=== PATIENT | female | born 1965 | race Two or more races ===

== ENCOUNTER 2016-06-21 07:47 | Outpatient (CLI) | payer MEDICAID | END 2016-06-21 07:48 | disposition home or self-care (01) | DX: E11.9 Type 2 diabetes mellitus without complications (principal) ==

== ENCOUNTER 2016-07-01 09:43 | Outpatient (CLI) | payer MEDICAID | END 2016-07-01 09:44 | disposition home or self-care (01) | DX: Z87.898 Personal history of other specified conditions (principal) ==

== ENCOUNTER 2016-09-20 10:44 | Outpatient (CLI) | payer MEDICAID ==
[2016-09-20 14:27] LABS: HEMOGLOBIN A1C 1.32 g/dL
[2016-09-20 14:29] LABS: ALBUMIN/GLOBULIN RATIO 0.9 (1.0-2.2); BILIRUBIN,TOTAL 0.3 mg/dL (0.2-1.0); CALCIUM 9.2 mg/dL (8.5-10.3); CREATININE 0.4 mg/dL (0.4-1.0); POTASSIUM 3.5 mmol/L (3.5-5.0); TOTAL PROTEIN 7.7 g/dL (6.7-8.2)
== END 2016-09-20 23:59 | disposition home or self-care (01) ==
LOC: LAB.N 10:44
PROVIDERS: ATTEND Nurse Practitioner Gerontology
DX: E11.9 Type 2 diabetes mellitus without complications (principal)
CPT/HCPCS: 36415; 80053; 83036

== ENCOUNTER 2016-12-03 12:07 | Outpatient (CLI) | payer MEDICAID ==
--- NOTE | 2016-12-03 17:04 | XRAY Report ---
THREE VIEW LUMBAR SPINE: 12/03/2016 CLINICAL INDICATION: Muscle strain. AP, lateral, coned-down views of the lumbar spine demonstrate normal height and alignment of the vert ebral bodies. The disk spaces are preserved. There is no evidence of fracture or subluxation. IMPRESSION: NORMAL LUMBAR SPINE. JOB #: [id number] EXT JOB #:[id number]
== END 2016-12-03 12:08 | disposition home or self-care (01) ==
LOC: DI.N 12:07
PROVIDERS: ATTEND Family Medicine
DX: S39.012D Strain of muscle, fascia and tendon of lower back, subsequent encounter (principal)
CPT/HCPCS: 72100

== ENCOUNTER 2016-12-23 11:41 | Outpatient (CLI) | payer MEDICAID ==
[2016-12-23 20:26] LABS: HEMOGLOBIN A1C 1.38 g/dL
== END 2016-12-23 11:42 | disposition home or self-care (01) ==
LOC: LAB.N 11:41
PROVIDERS: ATTEND Nurse Practitioner Gerontology
DX: E11.9 Type 2 diabetes mellitus without complications (principal)
CPT/HCPCS: 36415; 83036

== ENCOUNTER 2017-04-07 07:37 | Outpatient (CLI) | payer MEDICAID ==
[2017-04-07 13:55] LABS: HEMOGLOBIN A1C 0.88 g/dL
== END 2017-04-07 07:38 | disposition home or self-care (01) ==
LOC: LAB.N 07:37
PROVIDERS: ATTEND Nurse Practitioner Gerontology
DX: E11.9 Type 2 diabetes mellitus without complications (principal)
CPT/HCPCS: 36415; 83036

== ENCOUNTER 2017-07-10 09:21 | Outpatient (CLI) | payer MEDICAID ==
[2017-07-10 12:46] LABS: ALBUMIN 3.6 g/dL (3.2-5.5); ALBUMIN/GLOBULIN RATIO 0.9 (1.0-2.2); BILIRUBIN,TOTAL 0.2 mg/dL (0.2-1.0); CALCIUM 8.8 mg/dL (8.5-10.3); CREATININE 0.5 mg/dL (0.4-1.0); TOTAL PROTEIN 7.8 g/dL (6.7-8.2)
[2017-07-10 13:37] LABS: HB2 TOTAL 13.8 g/dL; HEMOGLOBIN A1C % 8.8 % (4.6-6.2)
== END 2017-07-10 09:22 | disposition home or self-care (01) ==
LOC: LAB.N 09:21
PROVIDERS: ATTEND Nurse Practitioner Gerontology
DX: E11.9 Type 2 diabetes mellitus without complications (principal)
CPT/HCPCS: 36415; 80053; 82043; 83036

== ENCOUNTER 2017-10-23 08:00 | Outpatient (CLI) | payer MEDICAID ==
[2017-10-23 18:55] LABS: HB2 TOTAL 13.8 g/dL; HEMOGLOBIN A1C 0.88 g/dL
== END 2017-10-23 08:01 | disposition home or self-care (01) ==
LOC: LAB.N 08:00
PROVIDERS: ATTEND Nurse Practitioner Gerontology
DX: E11.9 Type 2 diabetes mellitus without complications (principal)
CPT/HCPCS: 36415; 83036

== ENCOUNTER 2018-01-30 10:45 | Outpatient (CLI) | payer MEDICAID ==
[2018-01-30 13:06] LABS: HB2 TOTAL 14.1 g/dL; HEMOGLOBIN A1C 1.01 g/dL; HEMOGLOBIN A1C % 8.7 % (4.6-6.2)
== END 2018-01-30 10:46 | disposition home or self-care (01) ==
LOC: LAB.WCP 10:45
PROVIDERS: ATTEND Nurse Practitioner Gerontology
DX: E11.9 Type 2 diabetes mellitus without complications (principal)
CPT/HCPCS: 36415; 83036

== ENCOUNTER 2018-03-09 13:50 | Outpatient (CLI) | payer MEDICAID | END 2018-03-09 13:51 | disposition home or self-care (01) | LOC: SC 13:50 | PROVIDERS: ATTEND Internal Medicine Pulmonary Disease | DX: G47.10 Hypersomnia, unspecified (principal); R51 Headache; R06.83 Snoring; R41.89 Other symptoms and signs involving cognitive functions and awareness | CPT/HCPCS: 99203; 99212 ==

== ENCOUNTER 2018-04-24 19:40 | Outpatient (CLI) | payer MEDICAID | END 2018-04-24 19:41 | disposition home or self-care (01) | LOC: SC 19:40 | PROVIDERS: ATTEND Internal Medicine Pulmonary Disease | DX: G47.33 Obstructive sleep apnea (adult) (pediatric) (principal); G47.59 Other parasomnia | CPT/HCPCS: 95810 ==

== ENCOUNTER 2018-05-11 07:10 | Outpatient (CLI) | payer MEDICAID ==
[2018-05-11 13:52] LABS: BUN - BLOOD UREA NITROGEN 12 mg/dL (6-20); CALCIUM 8.9 mg/dL (8.5-10.3); CARBON DIOXIDE - CO2 28 mmol/L (21-32); CHLORIDE 97 mmol/L (101-111); CHOL/HDL RATIO 4.1 (<4.4); CHOLESTEROL 157 mg/dL; CREATININE 0.5 mg/dL (0.4-1.0); GFR - MDRD 130 (>89); GLUCOSE 169 mg/dL (70-100); HDL CHOLESTEROL 38 mg/dL; LDL CHOLESTEROL,CALCULATED 86 mg/dL; LDL/HDL RATIO 2.3 (<4.4); SODIUM 134 mmol/L (135-145); VLDL CHOLESTEROL 33 mg/dL
[2018-05-11 15:21] LABS: HB2 TOTAL 12.6 g/dL; HEMOGLOBIN A1C 1.06 g/dL; HEMOGLOBIN A1C % 9.8 % (4.6-6.2)
== END 2018-05-11 23:59 | disposition home or self-care (01) ==
LOC: LAB.N 07:10
PROVIDERS: ATTEND Nurse Practitioner Gerontology
DX: E11.9 Type 2 diabetes mellitus without complications (principal)
CPT/HCPCS: 36415; 80048; 80061; 83036; 83721; 84443

== ENCOUNTER 2018-05-21 11:05 | Outpatient (CLI) | payer MEDICAID | END 2018-05-21 11:06 | disposition home or self-care (01) | LOC: SC 11:05 | PROVIDERS: ATTEND Nurse Practitioner Family | DX: G47.33 Obstructive sleep apnea (adult) (pediatric) (principal) | CPT/HCPCS: 99212; 99214 ==

== ENCOUNTER 2018-08-21 08:00 | Outpatient (CLI) | payer MEDICAID ==
[2018-08-21 12:51] LABS: BASOPHILS % (AUTO) 0.8 %; EOSINOPHILS # (AUTO) 0.1 10^3/uL (0.0-0.7); EOSINOPHILS % (AUTO) 1.5 %; HGB - HEMOGLOBIN 12.4 g/dL (12.0-16.0); LYMPHOCYTES # (AUTO) 1.8 10^3/uL (1.5-3.5); LYMPHOCYTES % (AUTO) 29.3 %; MEAN CORPUSCULAR HEMOGLOBIN 27.8 pg (27.0-31.0); MEAN CORPUSCULAR VOLUME 84.3 fL (81.0-99.0); MEAN PLATELET VOLUME 8.7 fL (7.9-10.8); MONOCYTES # (AUTO) 0.3 10^3/uL (0.0-1.0); MONOCYTES % (AUTO) 4.8 %; NEUTROPHILS # (AUTO) 3.9 10^3/uL (1.5-6.6); NEUTROPHILS % (AUTO) 63.6 %; PLT - PLATELET COUNT 331 10^3/uL (130-450); RED BLOOD COUNT 4.47 10^6/uL (4.20-5.40); RED CELL DISTRIBUTION WIDTH 13.9 % (12.0-15.0); WHITE BLOOD COUNT 6.2 x10^3/uL (4.8-10.8)
[2018-08-21 13:04] LABS: ALBUMIN 3.5 g/dL (3.2-5.5); ALBUMIN/GLOBULIN RATIO 0.8 (1.0-2.2); ALKALINE PHOSPHATASE 98 IU/L (42-121); ALT ALANINE AMINOTRANSFERASE 14 IU/L (10-60); AST ASPARTATE AMINOTRANSFERASE 12 IU/L (10-42); BILIRUBIN,TOTAL 0.4 mg/dL (0.2-1.0); BUN - BLOOD UREA NITROGEN 15 mg/dL (6-20); CALCIUM 9.5 mg/dL (8.5-10.3); CARBON DIOXIDE - CO2 31 mmol/L (21-32); CHLORIDE 98 mmol/L (101-111); CHOLESTEROL 161 mg/dL; CREATININE 0.6 mg/dL (0.4-1.0); GFR - MDRD 105 (>89); GLUCOSE 236 mg/dL (70-100); HDL CHOLESTEROL 40 mg/dL; LDL CHOLESTEROL,CALCULATED 100 mg/dL; LDL/HDL RATIO 2.5 (<4.4); SODIUM 139 mmol/L (135-145); VLDL CHOLESTEROL 21 mg/dL
[2018-08-21 13:10] LABS: CREATININE,URINE 151.4 mg/dL; MICROALBUM/CREATININE RATIO,UR 91.8 ug/mg (<30.0); MICROALBUMIN,URINE 13.9 mg/dL (0-300.0)
[2018-08-21 13:38] LABS: HB2 TOTAL 13.5 g/dL; HEMOGLOBIN A1C 0.97 g/dL; HEMOGLOBIN A1C % 8.7 % (4.6-6.2)
== END 2018-08-21 23:59 | disposition home or self-care (01) ==
LOC: LAB.N 08:00
DX: E11.9 Type 2 diabetes mellitus without complications (principal)
CPT/HCPCS: 36415; 80053; 80061; 82043; 82570; 83036; 83721; 84443; 85025

== ENCOUNTER 2018-10-08 13:18 | Outpatient (CLI) | payer MEDICAID | END 2018-10-08 13:19 | disposition home or self-care (01) | LOC: DI.N 13:18 | DX: Z53.9 Procedure and treatment not carried out, unspecified reason (principal) ==

== ENCOUNTER 2018-10-23 12:31 | Outpatient (CLI) | payer MEDICAID ==
--- NOTE | 2018-10-23 15:05 | Mammography Report ---
Reason: MASTALGIA Procedure Date: 10/23/2018 Accession Number: [id number] / [id number] Procedure: MARIA TERESA - Diagnostic Dig Bilat CPT Code: FULL RESULT: EXAM: Diagnostic Dig Bilat DATE: 10/23/2018 1:44 PM CLINICAL HISTORY: Diagnostic examination. Nipple pain, sharp and bilateral. TECHNIQUE: (B) - Bilateral CC, laterally exaggerated CC, MLO views were obtained. Bilateral ML views are obtained. COMPARISON: 07/01/2016 through 12/10/2012. PARENCHYMAL PATTERN: (A) - The breast(s) demonstrate(s) scattered fibroglandular densities. FINDINGS: There are bilateral coarse typically benign calcifications as well as typically benign vascular calcifications There are no suspicious masses, calcifications, or areas of distortion. IMPRESSION: Benign findings. BI-RADS category 2. RECOMMENDATION: (ANNUAL) - Recommend routine annual screening mammography. BI-RADS CATEGORY: (2) - Benign Findings. STANDARD QUALIFYING STATEMENTS: 1. This examination was not reviewed with the aid of Computer-Aided Detection (CAD). 2. A negative or benign imaging report should not preclude biopsy if clinically suspicious findings are present. 3. Dense breasts may obscure an underlying neoplasm. 4. This examination was reviewed with the aid of 3D breast imaging (tomosynthesis).
== END 2018-10-23 12:32 | disposition home or self-care (01) ==
LOC: DI 12:31
PROVIDERS: ATTEND Family Medicine
DX: N64.4 Mastodynia (principal)
CPT/HCPCS: 77062; 77066

== ENCOUNTER 2018-10-27 15:39 | Outpatient (CLI) | payer MEDICAID ==
[2018-10-27 16:36] VITALS: BP 125/74
--- NOTE | 2018-10-27 16:36 | CONSULTATION NOTE ---
Information from patient questionnaire entered by Lydia Abdalla. I have reviewed and concur with the information entered by Lydia Abdalla. This document represents the service I personally performed and the decisions made by me, Karen Crooks MD, [facility]. - History of Present Illness HPI: JEFF CRAWFORD was diagnosed to have moderate, AHI 28.8, obstructive sleep apnea-hypopnea syndrome and returned today for CPAP therapy first compliance follow-up after having been on the treatment for 3 months. The patient went to [facility] for the equipment and was fitted with a full face mask. She reports the CPAP not every night and the mask usually falls off during the night.. The compliance report shows usage in 21 nights out of the past 30 nights, averaging 3.5 hours a night. She complained of no particular problem with the device such as soreness on the face, dry nose, epistaxis, nasal congestion or headache. She thinks that the pressure of 4 - 16 cmH2O is comfortable. She has not felt significantly better on the treatment. The [place] Sleepiness Scale score 11. The average residual AHI is 1.7; and air leak, 3.6 L/min. The 90th percentile pressure is 14.6 cmH2O. Equipment obtained from: [facility] Mask style: Full face - Compliance Data Reviewed with Patient Average duration of nightly device use (hours): 3 Compliance rate % (4+hrs/night over past 30 nights): 23 Current pressure setting (cmH2O): 4-16 Average residual AHI: 1.7 - Subjective Initial [place] Sleepiness Scale score: 8 Current [place] Sleepiness Scale score: 11 - Review of Systems Review of systems same as previous: Yes - Allergies/Medications Allergies codeine Allergy (Verified 06/06/14 10:36) Unknown - Physical Examination Vital signs obtained and entered by: Mary Lopez MA Blood Pressure: 125/74 Heart Rate: 107 O2 Saturation: 95 Height: 5 ft 4.5 in Weight (kg): 123.559 kg Weight change since last visit: -1 lbs Body Mass Index: 46.0 BMI Classification: Class 3 Neck circumference: 16 - Impression 1. Obstructive Sleep Apnea-Hypopnea Syndrome, moderate, with the patient having [id number] compliance due to mask falling off her face during the night and claustrophobia. I will order her a [employer] nasal cushion mask. The current pressure appears effective and comfortable. Overall, she is very satisfied with treatment and would like to keep trying to use the CPAP adequately. No adjustment is necessary today. - Plan Patient Coaching: The pt was instructed to use the CPAP more often. Plan: 1. Continue with autoCPAP at the same setting. 2.[employer]ironics DreamWear nasal cushion mask with all 4 cushion sizes given to her because she is not due for another mask through her insurance. [ 3. Attempt to lose weight.] [ Return for follow-up in 1 month to document compliance. I spent 100% of this 25 minute visit face to face with the patient with greater than 50% of this was spent time counseling the patient and coordination of care.
== END 2018-10-27 15:40 | disposition home or self-care (01) ==
LOC: SC 15:39
PROVIDERS: ATTEND Internal Medicine Pulmonary Disease
DX: G47.33 Obstructive sleep apnea (adult) (pediatric) (principal)
CPT/HCPCS: 99212; 99213

== ENCOUNTER 2018-11-17 11:22 | Emergency (ER) | payer MEDICAID ==
[2018-11-17 12:05] LABS: BASOPHILS # (AUTO) 0.1 10^3/uL (0.0-0.1); BASOPHILS % (AUTO) 0.6 %; EOSINOPHILS # (AUTO) 0.1 10^3/uL (0.0-0.7); EOSINOPHILS % (AUTO) 1.2 %; HGB - HEMOGLOBIN 12.8 g/dL (12.0-16.0); LYMPHOCYTES # (AUTO) 1.9 10^3/uL (1.5-3.5); MEAN CORPUSCULAR HEMOGLOBIN 27.6 pg (27.0-31.0); MEAN CORPUSCULAR HGB CONC 32.6 g/dL (32.0-36.0); MEAN CORPUSCULAR VOLUME 84.9 fL (81.0-99.0); MEAN PLATELET VOLUME 9.5 fL (7.9-10.8); MONOCYTES # (AUTO) 0.4 10^3/uL (0.0-1.0); NEUTROPHILS % (AUTO) 70.4 %; PLT - PLATELET COUNT 358 10^3/uL (130-450); RED BLOOD COUNT 4.63 10^6/uL (4.20-5.40); RED CELL DISTRIBUTION WIDTH 13.4 % (12.0-15.0); WHITE BLOOD COUNT 8.5 x10^3/uL (4.8-10.8)
[2018-11-17 12:19] LABS: ALBUMIN 3.6 g/dL (3.2-5.5); ALBUMIN/GLOBULIN RATIO 0.8 (1.0-2.2); BILIRUBIN,TOTAL 0.5 mg/dL (0.2-1.0); CREATININE 0.6 mg/dL (0.4-1.0)
[2018-11-17] MEDS ORDERED: KETOROLAC 30 MG/ML VIAL IVP STA (12:20)
[2018-11-17] MEDS ORDERED: LOPERAMIDE 2 MG CAPSULE PO STA (12:20)
[2018-11-17] MEDS ORDERED: SODIUM CHLORIDE 0.9% 1,000 ML IV ONE (12:20)
[2018-11-17] MEDS ORDERED: ONDANSETRON 4 MG/2 ML VIAL IVP STA (12:20)
--- NOTE | 2018-11-17 12:22 | ED Physician Documentation ---
PD HPI ABD PAIN - Stated complaint Stated Complaint: STOMACH PX, N/V - Chief complaint Chief Complaint: Abd Pain - History obtained from History obtained from: Patient - History of Present Illness Timing - onset: Yesterday (53-year-old woman with recent upper respiratory infection, type 2 diabetes, and history of cholecystectomy presents with increasing diffuse abdominal cramping associated with nonbloody diarrhea and nausea without vomiting since yesterday. Pain is intermittent and severe today. No sick contacts. She traveled to [place] recently. No recent antibiotics. No other travel. No fevers.) Review of Systems Ten Systems: 10 systems reviewed and negative Constitutional: denies: Fever, Chills Cardiac: denies: Chest pain / pressure, Palpitations Respiratory: denies: Dyspnea, Cough PD PAST MEDICAL HISTORY - Past Medical History Cardiovascular: Hypertension, High cholesterol Endocrine/Autoimmune: Type 2 diabetes : Other Psych: Depression, Anxiety - Past Surgical History Past Surgical History: Yes General: Cholecystectomy - Present Medications Home Medications: Ambulatory Orders Medication Instructions Recorded Confirmed Hydrochlorothiazide 25 mg PO DAILY 06/06/14 01/07/17 Losartan Potassium 100 mg PO DAILY 06/06/14 01/07/17 Metformin HCl 1,000 mg PO BID 06/06/14 01/07/17 Pravastatin Sodium 20 mg PO DAILY 06/06/14 01/07/17 Sertraline HCl 100 mg PO DAILY 06/06/14 01/07/17 Acetaminophen 650 mg PO Q6H PRN 07/11/14 01/07/17 Multivitamin [Multi Vitamin Daily] 1 each PO DAILY 07/11/14 01/07/17 Cyanocobalamin (Vitamin B-12) 1,000 mcg SL DAILY 01/07/17 01/07/17 [Vitamin B-12 (1000 mcg sublingual)] Gabapentin 300 mg PO QPM 01/07/17 01/07/17 Insulin Glargine [Lantus] 60 unit SUBQ QDAC 01/07/17 01/07/17 Insulin Lispro [Humalog] 10 unit SQ TIDWM 01/07/17 01/07/17 Dicyclomine [Bentyl] 20 mg PO QID PRN #15 capsule 11/17/18 Loperamide [Imodium] 2 mg PO QID PRN #10 capsule 11/17/18 Ondansetron Odt [Zofran] 4 mg TL Q6H PRN #10 tablet 11/17/18 - Allergies Allergies/Adverse Reactions: Allergies Allergy/AdvReac Type Severity Reaction Status Date / Time codeine Allergy Intermediate Unknown Verified 11/17/18 11:43 - Social History Does the pt smoke?: No Smoking Status: Former smoker Does the pt drink ETOH?: No Does the pt have substance abuse?: No - POLST Patient has POLST: No PD ED PE NORMAL - Vitals Vital signs reviewed: Yes - General General: Alert and oriented X 3, No acute distress (But intermittently clutching her abdomen anteriorly and pain when she has a cramp.) - HEENT HEENT: PERRL, EOMI - Neck Neck: Supple, no meningeal sign, No bony TTP - Cardiac Cardiac: RRR, No murmur - Respiratory Respiratory: No respiratory distress, Clear bilaterally - Abdomen Abdomen: Normal bowel sounds, Soft, Other (Mild diffuse tenderness without surgical signs, no focal tenderness.) - Back Back: No CVA TTP, No spinal TTP - Derm Derm: Normal color, Warm and dry - Extremities Extremities: No edema, No calf tenderness / cord - Neuro Neuro: Alert and oriented X 3, Normal speech Results - Vitals Vitals: Vital Signs - 24 hr 11/17/18 11:37 Temperature 36.9 C Heart Rate 95 Respiratory 20 Rate Blood Pressure 148/76 H O2 Saturation 97 Oxygen O2 Source Room air - Labs Labs: Laboratory Tests 11/17/18 11/17/18 11/17/18 11:57 11:57 12:30 WBC 8.5 RBC 4.63 Hgb 12.8 Hct 39.3 MCV 84.9 MCH 27.6 MCHC 32.6 RDW 13.4 Plt Count 358 MPV 9.5 Neut # (Auto) 6.0 Lymph # (Auto) 1.9 [place] # (Auto) 0.4 Eos # (Auto) 0.1 Baso # (Auto) 0.1 Absolute Nucleated RBC 0.00 Nucleated RBC % 0.0 Sodium 135 Potassium 3.5 Chloride 93 L Carbon Dioxide 26 Anion Gap 16.0 H BUN 16 Creatinine 0.6 Estimated GFR (MDRD) 105 Glucose 333 H Calcium 9.0 Total Bilirubin 0.5 AST 18 ALT 18 Alkaline Phosphatase 106 Total Protein 8.0 Albumin 3.6 Globulin 4.4 H Albumin/Globulin Ratio 0.8 L Lipase 25 Urine Color YELLOW Urine Clarity CLEAR Urine pH 5.5 Ur Specific [place] 1.025 Urine Protein NEGATIVE Urine Glucose (UA) 500 H Urine Ketones NEGATIVE Urine Occult Blood TRACE-INTA Urine Nitrite NEGATIVE Urine Bilirubin NEGATIVE Urine Urobilinogen 0.2 (NORMAL) Ur Leukocyte Esterase NEGATIVE Ur Microscopic Review NOT INDICATED Urine Culture Comments NOT INDICATED - Rads (name of study) Ct A/P Radiology: EMP read contemporaneously (negative) PD MEDICAL DECISION MAKING - ED course ED course: 53-year-old diabetic woman presents with a syndrome most consistent with gastroenteritis, but the Pain seems prominence therefore we did a CT and labs which were remarkable only for hyperglycemia. She was feeling better after Toradol and Zofran here. She was nontender on reevaluation prior to discharge. Departure - Departure Disposition: 01 Home, Self Care Clinical Impression: Abdominal pain Qualifiers: Abdominal location: generalized Qualified Code(s): R10.84 - Generalized abdominal pain Diarrhea Qualifiers: Diarrhea type: presumed infectious Qualified Code(s): R19.7 - Diarrhea, unspecified Condition: Good Record reviewed to determine appropriate education?: Yes Instructions: ED Diarrhea Viral, Abdominal Pain Prescriptions: Dicyclomine [Bentyl] 20 mg PO QID PRN #15 capsule PRN Reason: Abdominal Pain Loperamide [Imodium] 2 mg PO QID PRN #10 capsule PRN Reason: Diarrhea Ondansetron Odt [Zofran] 4 mg TL Q6H PRN #10 tablet PRN Reason: Nausea / Vomiting Comments: As discussed, you should be better in the next 24 hours. Return if worse or if not better in that timeframe or if you develop other new concerning symptoms such as a fever. Forms: Activity restrictions
[2018-11-17] MEDS ORDERED: IOVERSOL 320 100 ML VIAL IVP ONE ×2 (12:32→13:02)
[2018-11-17 12:52] LABS: BILIRUBIN,URINE NEGATIVE (NEGATIVE); GLUCOSE, URINE (UA) 500 mg/dL (NEGATIVE); KETONES,URINE (UA) NEGATIVE (NEGATIVE); LEUKOCYTE ESTERASE, URINE NEGATIVE (NEGATIVE); NITRITE,URINE NEGATIVE (NEGATIVE); OCCULT BLOOD,URINE TRACE-INTA (NEGATIVE); PH,URINE 5.5 PH (5.0-7.5); PROTEIN,URINE NEGATIVE (NEGATIVE); UROBILINOGEN,URINE 0.2 (NORMAL) E.U./dL (NORMAL)
[2018-11-17 12:55] LABS: CLARITY,URINE CLEAR (CLEAR)
--- NOTE | 2018-11-17 13:15 | CT Report ---
Reason: IV only, abd pain Procedure Date: 11/17/2018 Accession Number: [id number] / [id number] Procedure: CT - Abdomen/Pelvis W CPT Code: FULL RESULT: EXAM: CT ABDOMEN AND PELVIS EXAM DATE: 11/17/2018 12:58 PM. CLINICAL HISTORY: IV only, abdominal pain. COMPARISONS: None. TECHNIQUE: Routine helical CT imaging was performed through the abdomen and pelvis. IV contrast: Optiray 320 100 mL. Enteric contrast: No. Reconstructions: Coronal and sagittal. In accordance with CT protocol optimization, one or more of the following dose reduction techniques were utilized for this exam: automated exposure control, adjustment of mA and/or KV based on patient size, or use of iterative reconstructive technique. FINDINGS: Lung Bases: Unremarkable. Liver: Normal. No masses. Gallbladder/Bile Ducts: Not seen. Spleen: Normal. Pancreas: Normal. Adrenal Glands: Normal. 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 Peritoneal Cavity/Bowel: There is diverticulosis without diverticulitis. No bowel obstruction. No free fluid, free air or adenopathy. No masses or acute inflammatory process. The appendix is not seen; however, there are no inflammatory changes in the pericecal region. Pelvic Organs: Normal. The bladder and visualized pelvic organs are within normal limits. Vasculature: No aneurysms or other significant abnormality. Bones: No significant abnormality. Other: None. IMPRESSION: The etiology of the patient's abdominal pain is not delineated. Presumed history of cholecystectomy as well as appendectomy should be correlated to history. RADIA
[2018-11-17 13:38] VITALS: BP 147/75
== END 2018-11-17 13:51 | disposition home or self-care (01) ==
LOC: ED 11:22
DX: R10.84 Generalized abdominal pain (principal); R19.7 Diarrhea, unspecified; I10 Essential (primary) hypertension; Z79.4 Long term (current) use of insulin; Z87.891 Personal history of nicotine dependence; E11.65 Type 2 diabetes mellitus with hyperglycemia
CPT/HCPCS: 36415; 74177; 80053; 81003; 83690; 85025; 96374; 96375; 99284; A9270; Q9967; 81001; 87086

== ENCOUNTER 2018-11-24 14:19 | Outpatient (CLI) | payer MEDICAID ==
--- NOTE | 2018-12-07 16:50 | SLEEP CARE CONSULTATION ---
Information from patient questionnaire entered by Dalia Cuevas. I have reviewed and concur with the information entered by Dalia Cuevas. This document represents the service I personally performed and the decisions made by me, Karen Crooks MD, [facility]. - History of Present Illness HPI: JEFF CRAWFORD was diagnosed to have moderate, AHI 28.8, obstructive sleep apnea-hypopnea syndrome and returned today for CPAP therapy first compliance extension follow-up. She still is not using her CPAP consistently. The compliance report shows usage in 21 out of the past 30 nights, averaging 4.6 hours a night. She states that she was sick for a while. Equipment obtained from: [facility] - Compliance Data Reviewed with Patient Compliance rate % (4+hrs/night over past 30 nights): 40 Current pressure setting (cmH2O): 4-16 - Subjective Patient concerns: Initial [place] Sleepiness Scale score: 8 Current [place] Sleepiness Scale score: 10 - Review of Systems Review of systems same as previous: Yes - Allergies/Medications Allergies and home medications reviewed: Yes - Impression 1. Obstructive Sleep Apnea-Hypopnea Syndrome, moderate, with poor treatment compliance and good apnea control. On CPAP therapy, there is improved sleep quality and continues to feel more rested overall. The current pressure setting appears effective. Mask fits well. The patient was instructed to use her CPAP more to meet compliance criteria. If she has to return the device due to non- compliance, then we will have to repeat the sleep study. - Plan Plan: Continue auto CPAP pressure at 4 - 16 cm H2O. Notify me if snoring with the mask or feeling that the pressure is too much or too little. Attempt to lose weight. Return for follow-up in 1 month, or sooner if concerns arise. I spent 100% of this 15 minute visit face to face with the patient with greater than 50% of this was spent time counseling the patient and coordination of care.
== END 2018-11-24 14:20 | disposition home or self-care (01) ==
LOC: SC 14:19
PROVIDERS: ATTEND Internal Medicine Pulmonary Disease
DX: G47.33 Obstructive sleep apnea (adult) (pediatric) (principal)
CPT/HCPCS: 99212; 99213

== ENCOUNTER 2018-12-03 11:04 | Day surgery (SDC) | payer MEDICAID ==
[2018-12-03] MEDS ORDERED: LACTATED RINGERS 1,000 ML IV ONE (11:45)
[2018-12-03] MEDS ORDERED: ONDANSETRON 4 MG/2 ML VIAL IVP ONE (12:47)
[2018-12-03] MEDS ORDERED: fentaNYL 100 MCG/2 ML VIAL IVP ONE (12:47)
[2018-12-03] MEDS ORDERED: MIDAZOLAM 2 MG/2 ML VIAL IVP ONE (12:47)
[2018-12-03 14:05] VITALS: BP 123/80
== END 2018-12-03 11:05 | disposition home or self-care (01) ==
LOC: SDS 11:04
PROVIDERS: ATTEND Surgery
PROC: 0DJD8ZZ Inspection of Lower Intestinal Tract, Via Natural or Artificial Opening Endoscopic (ICD-10-PCS; principal; 2018-12-03 12:30)
DX: Z12.11 Encounter for screening for malignant neoplasm of colon (principal); K64.8 Other hemorrhoids; I10 Essential (primary) hypertension; E11.9 Type 2 diabetes mellitus without complications; Z79.4 Long term (current) use of insulin; E66.01 Morbid (severe) obesity due to excess calories; Z68.42 Body mass index [BMI] 45.0-49.9, adult; G47.30 Sleep apnea, unspecified
CPT/HCPCS: 45378; J7120

== ENCOUNTER 2018-12-10 08:00 | Outpatient (CLI) | payer MEDICAID ==
[2018-12-10 20:13] LABS: HB2 TOTAL 13.5 g/dL; HEMOGLOBIN A1C 1.2 g/dL; HEMOGLOBIN A1C % 10.3 % (4.6-6.2)
== END 2018-12-10 23:59 | disposition home or self-care (01) ==
LOC: LAB.WC 08:00
PROVIDERS: ATTEND Family Medicine
DX: E11.9 Type 2 diabetes mellitus without complications (principal)
CPT/HCPCS: 36415; 83036

== ENCOUNTER 2018-12-10 14:27 | Outpatient (CLI) | payer MEDICAID ==
--- NOTE | 2018-12-10 20:24 | XRAY Report ---
Reason: BILATERAL SHOULDER PAIN Procedure Date: 12/10/2018 Accession Number: [id number] / [id number] Procedure: WCP - Shoulder 2 View BILAT CPT Code: FULL RESULT: EXAM: BILATERAL SHOULDER RADIOGRAPHY EXAM DATE: 12/10/2018 02:47 PM. CLINICAL HISTORY: Bilateral shoulder pain. COMPARISON: None. TECHNIQUE: 2 views each shoulder. FINDINGS: Bones: Normal. No fracture or bone lesion. Joints: The glenohumeral and acromioclavicular joints are normally aligned. Mild bilateral acromioclavicular joint degenerative disease. Small calcification along the superolateral right humeral head and prominent calcifications along the superolateral left humeral head and greater tuberosity are consistent with rotator cuff calcific tendinopathy. Calcific bursitis not excluded. Small nodular calcification at the inferior margin of the right glenohumeral joint is suspicious for a small loose body. Soft tissues: The visualized hemithorax is unremarkable. No soft tissue swelling. IMPRESSION: 1. Mild bilateral AC joint degenerative disease. 2. Findings suspicious for bilateral rotator cuff calcific tendinopathy, left more severe than right. 3. Possible small calcified right loose body. RADIA
== END 2018-12-10 23:59 | disposition home or self-care (01) ==
LOC: DI.WCP 14:27
PROVIDERS: ATTEND Family Medicine
DX: M19.012 Primary osteoarthritis, left shoulder (principal); M19.011 Primary osteoarthritis, right shoulder

== ENCOUNTER 2018-12-24 20:26 | Outpatient (CLI) | payer MEDICAID | END 2018-12-24 20:27 | disposition home or self-care (01) | LOC: SC 20:26 | PROVIDERS: ATTEND Internal Medicine Pulmonary Disease | DX: G47.33 Obstructive sleep apnea (adult) (pediatric) (principal); G47.61 Periodic limb movement disorder | CPT/HCPCS: 95810 ==

== ENCOUNTER 2019-01-27 16:11 | Outpatient (CLI) | payer MEDICAID ==
[2019-01-27 18:03] VITALS: BP 116/64
--- NOTE | 2019-01-27 18:03 | SLEEP CARE CONSULTATION ---
Information from patient questionnaire entered by Dalia Cuevas. I have reviewed and concur with the information entered by Dalia Cuevas. This document represents the service I personally performed and the decisions made by me, Lauren Alegre RN, MSN, [employer]. History of Present Illness Initial [place] Sleepiness Scale score: 8 Current [place] Sleepiness Scale score: 15 Additional HPI information: JEFF CRAWFORD returns for follow up of the recently performed polysomnography and informed of findings. Evidently she failed to meet compliance guidelines due to illness and claustrophobia with mask and had to repeat sleep study to re- qualify for CPAP therapy. I explained the pathophysiology behind obstructive sleep apnea. We then spent quite a bit of time discussing different treatment options. For mild obstructive sleep apnea, surgery and oral appliance are alternatives to nasal CPAP therapy but in moderate or severe cases, nasal CPAP is the most effective and reliable treatment. I reviewed the impact of weight changes on sleep apnea and strongly recommended losing weight. After some discussion, the patient opted to go with the nasal CPAP therapy. Nasal autoCPAP set at [id number] will be ordered with rationale explained. A manual titration study will be ordered if unable to find optimal pressure with office adjustments. I again explained how CPAP machine works and what to expect when using the machine. Using CPAP every night in order to get used to it was emphasized. Patient advised to put CPAP mask on before getting into bed so as not to fall asleep without CPAP. To assist acclimation to CPAP use, it could also be used for a short time during day while reading or watching TV. The patient was instructed to call the CPAP supplier to discuss any mechanical problem that may occur. If the mask given is uncomfortable or is difficult to keep on through the night even with adjustment, contact the CPAP supplier as many will replace with another mask style if notified before 30 days. If snoring or perceives is not getting enough air or too much air from the machine, notify this office. [facility] patient education PAP tips reviewed . She has copy from her first set up. Patient counseled not drink alcohol less than 4 hours before bedtime as it can increase snoring and apnea. Patient does not drink alcohol. Patient was cautioned about risks of drowsy driving until sleepiness symptoms resolve. Patient denies drowsy driving. [facility] patient education on snoring and sleep apnea given and reviewed before. Sleep Study - Polysomnography Polysomnography findings: The quality of the study is good. The patient had slightly reduced sleep efficiency due to several awakenings after the sleep onset. The sleep architecture was abnormal for sleep fragmentation and reduced amount of time spent in REM sleep. Respiratory monitoring showed moderate obstructive sleep apnea-hypopnea (AHI = 20.8) associated with frequent arousals, oxyhemoglobin desaturation and moderate hypoxia (diana oxygen saturation of 79%). The respiratory events occurred independently of sleep stage and body position (supine AHI = 66.2; nonsupine = 18.52). Snore was loud in intensity. There was severe periodic leg movement of sleep contributing to the sleep fragmentation. Cardiac rhythm was normal sinus rhythm without significant arrhythmia. No abnormal behavior (parasomnia) observed during the night. Allergies and Home Medications Known drug allergies: Yes (codiene) Home medication list reviewed: Yes Allergy and home medication list: Medication Name (generic/name brand) Strength & Dosage Gabapentin 300mg cap one daily at bedtime Sertraline HCL 100mg tab one daily Humalog 100 unit/ml SQ solution Inject 5 units SQ TID prior to meals Hydrochlorothiazide 25mg tab one daily in the morning Lantus 100 unit/ml SQ solution Inject 70 units SQ daily at bedtime Metformin HCL 1000mg tab one twice daily Pravachol (Pravastatin Sodium) 20mg tab one daily at bedtime Losartan Potassium 100mg tab one daily Allergy List Codeine Review of Systems Review of systems same as previous: No ( eye injections) Physical Exam Blood Pressure: 116/64 Cuff size: long Heart Rate: 97 O2 Saturation: 96 Height: 5 ft 4.5 in Weight: 268 lb 12.8 oz Body Mass Index: 45.4 BMI Classification: Obesity Class 3 Impression and Plan 1. Obstructive Sleep Apnea-Hypopnea Syndrome, moderate, with lowest oxygen saturation of 79%. Obviously this is the cause of the patients symptoms of unrefreshed sleep, and excessive daytime sleepiness. Positive pressure therapy could benefit her hypertension, diabetes and depression. As mentioned above, the patient will be re -started on nasal autoCPAP therapy with pressure set at 4-15 cmH2O. A manual titration study will be completed if unable to find optimal treatment pressure with office adjustments. Compliance guidelines also reviewed. A copy of compliance guidelines will be given for reference at check out. Because the apnea is more severe supine, I instructed to avoid sleeping supine using pillow positioning until able to start CPAP use. Patient is to contact this office if any problems with using CPAP prior to her first follow up. 2. Periodic limb movement, severe, that did not fragment patients sleep. Periodic limb movement of sleep (PLMS) is characterized by episodes of repetitive limb movements that occur during sleep and usually involve the lower limbs. The etiology is unknown but can be associated with restless leg syndrome (RLS), neuropathy, spinal cord diseases, kidney disease, rheumatological disorders, narcolepsy, obstructive sleep apnea, and REM sleep behavior disorder. Other factors that can increase PLMS and/or RLS are heredity and iron deficiency as reflected by a low serum ferritin level below 50 to 75mcg / L. Several medications can precipitate or aggravate PLMS such as selective serotonin re- uptake inhibitor antidepressants, tricyclic antidepressants, lithium, and dopamine receptor antagonists with the exception of bupropion. Caffeine can also aggravate PLMS and should be avoided. Sleep hygiene methods can also improve sleep as well as lifestyle changes such as regular exercise. Patient was advised that no treatment is needed at this time. If symptoms increase, then further evaluation is indicated. Patient has a history of anemia and symptoms of RLS every evening so she is advised to follow up with PCP for further evaluation and treatment to rule out anemia and or possible other cause. * Nasal auto CPAP therapy with pressure at 4-15 cm H2O. * Attempt to lose weight. * Avoid alcohol consumption near bedtime. * Avoid supine sleep until using CPAP. * Follow up with PCP for further evaluation of PLMS / RLS such as anemia. * The patient is again cautioned about driving until sleepiness completely resolves. * Return one month after CPAP obtained. I will assess response to therapy and compliance at that time. I spent 100% of this 35 minute visit face to face with the patient with greater than 50% of this was spent time counseling the patient and coordination of care.
== END 2019-01-27 16:12 | disposition home or self-care (01) ==
LOC: SC 16:11
PROVIDERS: ATTEND Nurse Practitioner Family
DX: G47.33 Obstructive sleep apnea (adult) (pediatric) (principal); G47.61 Periodic limb movement disorder; E66.9 Obesity, unspecified; Z68.42 Body mass index [BMI] 45.0-49.9, adult
CPT/HCPCS: 99212; 99214

== ENCOUNTER 2019-06-11 07:52 | Outpatient (CLI) | payer MEDICAID | END 2019-06-11 07:53 | disposition home or self-care (01) | LOC: RT 07:52 | PROVIDERS: ATTEND Surgery | DX: Z01.818 Encounter for other preprocedural examination (principal); K64.4 Residual hemorrhoidal skin tags; E11.9 Type 2 diabetes mellitus without complications; Z79.899 Other long term (current) drug therapy | CPT/HCPCS: 36415; 80053; 93005 ==

== ENCOUNTER 2019-06-11 09:12 | Outpatient (CLI) | payer MEDICAID ==
[2019-06-11 09:48] LABS: ALBUMIN 3.7 g/dL (3.2-5.5); ALBUMIN/GLOBULIN RATIO 0.8 (1.0-2.2); BILIRUBIN,TOTAL 0.5 mg/dL (0.2-1.0); CALCIUM 9.2 mg/dL (8.5-10.3); CREATININE 0.6 mg/dL (0.4-1.0); TOTAL PROTEIN 8.1 g/dL (6.7-8.2)
== END 2019-06-11 09:13 | disposition home or self-care (01) ==
LOC: LAB 09:12
PROVIDERS: ATTEND Registered Nurse
DX: Z01.812 Encounter for preprocedural laboratory examination (principal); K64.9 Unspecified hemorrhoids; E11.9 Type 2 diabetes mellitus without complications; Z79.899 Other long term (current) drug therapy
CPT/HCPCS: 36415; 80053

== ENCOUNTER 2019-06-15 06:02 | Day surgery (SDC) | payer MEDICAID ==
[2019-06-15] MEDS ORDERED: LACTATED RINGERS 1,000 ML IV ONE ×2 (06:19→08:22)
[2019-06-15] MEDS ORDERED: BUPIVACAINE 0.25% PF 30 ML VIAL ONE (06:59)
[2019-06-15] MEDS ORDERED: LIDOCAINE 1%-EPI 1:100000 20 ML MDV ONE (07:00)
--- NOTE | 2019-06-15 07:00 | ANESTHESIA ---
Pre-Anesthesia VS, & Labs - Diagnosis external hemorrhoid - Procedure Hemorrhoidectomy Vital Signs: Temp Pulse Resp BP Pulse Ox 36 C L 80 16 125/84 H 96 06/15/19 06:24 06/15/19 06:24 06/15/19 06:24 06/15/19 06:24 06/15/19 06:24 Height 5 ft 3 in Weight (kg) 119 kg Body Mass Index 44.7 - NPO >8 hours - Is Patient ?: No - Lab Results Current Lab Results: Laboratory Tests 06/15/19 06:34: POC Whole Bld Glucose 157 H Lab results reviewed: Yes Home Medications and Allergies Hydrochlorothiazide 25 mg PO DAILY 06/06/14 Losartan Potassium 100 mg PO DAILY 06/06/14 Metformin HCl 1,000 mg PO BID 06/06/14 Pravastatin Sodium 20 mg PO DAILY 06/06/14 Sertraline HCl 100 mg PO DAILY 06/06/14 Acetaminophen 650 mg PO Q6H PRN 07/11/14 Gabapentin 600 mg PO QPM 01/07/17 Insulin Glargine [Lantus] 60 unit SUBQ QDAC 01/07/17 Insulin Lispro [Humalog] 2 - 10 unit SQ TIDWM 01/07/17 Allergies/Adverse Reactions: Allergies Allergy/AdvReac Type Severity Reaction Status Date / Time codeine Allergy Intermediate Unknown Verified 11/17/18 11:43 Anes History & Medical History - Anesthetic History Anesthesia Complications: reports: Post-Operative Nausea/Vomiting Family history of Anesthesia Complications: Denies Family history of Malignant Hyperthermia: Denies - Medical History Cardiovascular: reports: Hypertension, High cholesterol Pulmonary: reports: None Gastrointestinal: reports: GERD Urinary: reports: None Neuro: reports: Peripheral neuropathy Musculoskeletal: reports: None Endocrine/Autoimmune: reports: Type 2 diabetes Skin: reports: None Smoking Status: Former smoker - Surgical History General: Cholecystectomy Gynecologic: Tubal ligation Exam General: Alert, Oriented x3, Cooperative Dental: Loose/Frag (lower left) Mouth Openin Fingerbreadth Neck Mobility: Normal Mallampati classification: III Thyromental Distance: 4-6 cm Respiratory: Lungs clear Cardiovascular: Regular rate Neurological: Normal speech Mental/Cognitive Status: Alert/Oriented X3, Normal for patient Cognitive Status: Within normal limits Plan Anesthesia Type: General Consent for Procedure(s) Verified and Reviewed: Yes Code Status: Attempt Resuscitation ASA classification: 2-Mild systemic disease Is this case an emergency?: No
[2019-06-15] MEDS ORDERED: ONDANSETRON 4 MG/2 ML VIAL IVP PRN (07:21)
[2019-06-15] MEDS ORDERED: HYDROmorphone 0.5 MG/0.5 ML SYRINGE IVP PRN (07:21)
[2019-06-15] MEDS ORDERED: oxyCODONE 5 MG TABLET PO PRN (07:21)
[2019-06-15] MEDS ORDERED: MIDAZOLAM 2 MG/2 ML VIAL IVP ONE (07:30)
[2019-06-15] MEDS ORDERED: NEOSTIGMINE 1 MG/1 ML 10 ML MDV IVP ONE (07:30)
[2019-06-15] MEDS ORDERED: KETOROLAC 30 MG/ML VIAL IVP ONE (07:30)
[2019-06-15] MEDS ORDERED: LIDOCAINE-MPF 2% 5 ML VIAL IM ONE (07:30)
[2019-06-15] MEDS ORDERED: DEXAMETHASONE 4 MG/ML VIAL IVP ONE (07:30)
[2019-06-15] MEDS ORDERED: GLYCOPYRROLATE 1 MG/5 ML VIAL IVP ONE (07:30)
[2019-06-15] MEDS ORDERED: fentaNYL 100 MCG/2 ML VIAL IVP ONE (07:30)
[2019-06-15] MEDS ORDERED: PROPOFOL 200 MG/20 ML VIAL IVP ONE (07:30)
[2019-06-15] MEDS ORDERED: SUCCINYLCHOLINE 200 MG/10 ML VIAL IVP ONE (07:30)
[2019-06-15] MEDS ORDERED: ROCURONIUM 50 MG/5 ML VIAL IVP ONE (07:30)
[2019-06-15] MEDS ORDERED: LIDOCAINE 1%-EPI 1:100000 20 ML MDV SUBQ ONE ×2 (08:00)
[2019-06-15] MEDS ORDERED: LIDOCAINE JELLY 2% 5 ML TUBE TOP ONE ×2 (08:01→08:22)
[2019-06-15] MEDS ORDERED: BUPIVACAINE 0.25% PF 30 ML VIAL SUBQ ONE ×2 (08:01)
--- NOTE | 2019-06-15 08:38 | OPERATIVE REPORT ---
Operative Report - General Procedure Date: 06/15/19 Pre-Op Diagnosis: External Hemorrhoids Procedure Performed: Hemorrhoidectomy Post Op Diagnosis: same - Procedure Note Primary Surgeon: Sujata Crane MD Anesthesia Provider: Glenn Stone CRNA Anesthesia Technique: General ET tube Estimated Blood Loss (mL): 5 Indications: Pt with painful external hemorrhoids refractory to medical management. Informed consent reviewed including all risks, benefits, and alternatives and pt wishes to proceed. Findings: Two column swollen external hemorrhoids Complications: none - Other Other Information/Narrative: The patient was taken to the operating room and placed on the operating table in prone jacknife position after intubation. The perineal and buttocks areas were prepped and draped in usual sterile fashion. A retractor was placed in the anus. A large and swollen external hemorrhoid was seen as well as a moderate sized hemorrhoid. No significant hemorrhoidal tissue was seen in the other column and no other abnormal tissue was noted. The skin tag was grasped and retracted from the underlying tissue. Electrocautery was used to carefully excise the tissue to its pedicle. This is repeated with the adjacent hemorrhoid again with attention to the underlying sphincter muscles. Hemostasis was ensured. A 2-0 chromic was used to close the tissue, starting from the apex of the pedicles. Lidocaine jelly was inserted into the anus on a gelfoam pad. An ABD pad and mesh briefs were placed. The patient was awakened and taken to the PACU in stable condition. All counts were correct at the end of the procedure. The patient tolerated the procedure well and was extubated without yainv.
[2019-06-15] MEDS ORDERED: HYDROmorphone 0.5 MG/0.5 ML SYRINGE ONE (08:47)
[2019-06-15] MEDS ORDERED: oxyCODONE 5 MG TABLET ONE (09:12)
[2019-06-15] MEDS ORDERED: ONDANSETRON ODT 4 MG TABLET ONE (10:02)
[2019-06-15 10:03] VITALS: BP 132/76
== END 2019-06-15 06:03 | disposition home or self-care (01) ==
LOC: SDS 06:02
PROVIDERS: ATTEND Surgery
DX: K64.4 Residual hemorrhoidal skin tags (principal); E11.42 Type 2 diabetes mellitus with diabetic polyneuropathy; I10 Essential (primary) hypertension; E78.5 Hyperlipidemia, unspecified; G47.30 Sleep apnea, unspecified; F32.9 Major depressive disorder, single episode, unspecified; E66.9 Obesity, unspecified; Z68.42 Body mass index [BMI] 45.0-49.9, adult; Z79.4 Long term (current) use of insulin; Z87.891 Personal history of nicotine dependence
CPT/HCPCS: 46250; A9270; J0330; J1170; J3490; J7120; Q0162

== ENCOUNTER 2019-06-24 08:00 | Outpatient (CLI) | payer MEDICAID ==
[2019-06-24 12:42] LABS: HB2 TOTAL 12.9 g/dL; HEMOGLOBIN A1C 0.96 g/dL
[2019-06-24 12:45] LABS: ALBUMIN 3.7 g/dL (3.2-5.5); ALBUMIN/GLOBULIN RATIO 0.9 (1.0-2.2); ALKALINE PHOSPHATASE 78 IU/L (42-121); ALT ALANINE AMINOTRANSFERASE 14 IU/L (10-60); AST ASPARTATE AMINOTRANSFERASE 14 IU/L (10-42); BILIRUBIN,TOTAL 0.6 mg/dL (0.2-1.0); BUN - BLOOD UREA NITROGEN 15 mg/dL (6-20); CARBON DIOXIDE - CO2 31 mmol/L (21-32); CHLORIDE 99 mmol/L (101-111); CHOL/HDL RATIO 3.8 (<4.4); CHOLESTEROL 173 mg/dL; CREATININE 0.5 mg/dL (0.4-1.0); GFR - MDRD 129 (>89); GLUCOSE 124 mg/dL (70-100); HDL CHOLESTEROL 45 mg/dL; LDL CHOLESTEROL,CALCULATED 98 mg/dL; LDL/HDL RATIO 2.2 (<4.4); SODIUM 141 mmol/L (135-145); TOTAL PROTEIN 7.9 g/dL (6.7-8.2); VLDL CHOLESTEROL 30 mg/dL
== END 2019-06-24 23:59 | disposition home or self-care (01) ==
LOC: LAB.WCP 08:00
PROVIDERS: ATTEND Family Medicine
DX: E11.65 Type 2 diabetes mellitus with hyperglycemia (principal)
CPT/HCPCS: 36415; 80053; 80061; 83036; 83721

== ENCOUNTER 2019-07-28 13:26 | Observation (INO) | payer MEDICAID ==
[2019-07-28] MEDS ORDERED: NITROGLYCERIN SL 0.4 MG TABLET SL STA ×2 (13:44→15:24)
[2019-07-28] MEDS ORDERED: MORPHINE 2 MG/ML CARPUJECT IVP STA (13:44)
[2019-07-28] MEDS ORDERED: SODIUM CHLORIDE 0.9% 1,000 ML IV STA (13:44)
[2019-07-28] MEDS ORDERED: HEPARIN 5,000 UNIT/ML VIAL IVP STA (13:46)
[2019-07-28 13:54] LABS: BASOPHILS % (AUTO) 0.4 %; EOSINOPHILS # (AUTO) 0.1 10^3/uL (0.0-0.7); EOSINOPHILS % (AUTO) 0.8 %; HGB - HEMOGLOBIN 12.8 g/dL (12.0-16.0); LYMPHOCYTES # (AUTO) 2.7 10^3/uL (1.5-3.5); LYMPHOCYTES % (AUTO) 28.8 %; MEAN CORPUSCULAR HEMOGLOBIN 28.8 pg (27.0-31.0); MEAN CORPUSCULAR HGB CONC 33.7 g/dL (32.0-36.0); MEAN CORPUSCULAR VOLUME 85.4 fL (81.0-99.0); MEAN PLATELET VOLUME 9.8 fL (7.9-10.8); MONOCYTES # (AUTO) 0.5 10^3/uL (0.0-1.0); MONOCYTES % (AUTO) 4.8 %; NEUTROPHILS % (AUTO) 64.3 %; PLT - PLATELET COUNT 362 10^3/uL (130-450); RED BLOOD COUNT 4.45 10^6/uL (4.20-5.40); RED CELL DISTRIBUTION WIDTH 13.2 % (12.0-15.0); WHITE BLOOD COUNT 9.3 x10^3/uL (4.8-10.8)
[2019-07-28 13:59] LABS: INR 1.3 (0.8-1.2); PT - PROTHROMBIN TIME 14.5 secs (9.9-12.6)
[2019-07-28 14:08] LABS: ALBUMIN 3.9 g/dL (3.2-5.5); ALBUMIN/GLOBULIN RATIO 0.9 (1.0-2.2); BILIRUBIN,TOTAL 0.4 mg/dL (0.2-1.0); CREATININE 0.6 mg/dL (0.4-1.0); TOTAL PROTEIN 8.4 g/dL (6.7-8.2)
--- NOTE | 2019-07-28 14:08 | ED Physician Documentation ---
PD HPI CHEST PAIN - Stated complaint Stated Complaint: CP/L ARM PN - Chief complaint Chief Complaint: Cardiac - History obtained from History obtained from: Patient - Additional information Additional information: Patient comes emergency department complaining of left arm and shoulder pain that started yesterday morning. Patient states nothing seems to make it better or worse, and that the pain was intermittent throughout the day yesterday. She states she also was noticing sharp stabbing pains under her left breast. She States that she does not necessarily feel short of breath, but that the stabbing pains cause her to draw a breath in. She also complains that she has felt nauseated since these pains started. Patient has a history of diabetes, hypertension, and hyperlipidemia, and also states that her mother had a stent placed in her 50s.Patient is not known to have any cardiac history. She states that she was a smoker until 5 years ago. The patient states that her blood sugars generally run less than 200, though she has not checked in the last 24 hours. Patient states that today, the pain seemed to be much worse and that it woke her up in the middle of the night. She has not noticed any worsening of the symptoms with exertion. No recent fever or cough. No lower extremity edema. She states she does get cramps in her right calf, but this is not new. She rates her current pain is a 2-5 out of 10, depending if she is having a stabbing in her chest. She states that currently, the pain is going all the way from her shoulder to her fingers on the left. Review of Systems Ten Systems: 10 systems reviewed and negative Constitutional: reports: Reviewed and negative Eyes: reports: Reviewed and negative Ears: reports: Reviewed and negative Nose: reports: Reviewed and negative Throat: reports: Reviewed and negative Cardiac: reports: Chest pain / pressure Respiratory: reports: Reviewed and negative GI: reports: Nausea : reports: Reviewed and negative Skin: reports: Reviewed and negative Musculoskeletal: reports: Extremity pain Neurologic: reports: Reviewed and negative Psychiatric: reports: Reviewed and negative Endocrine: reports: Reviewed and negative Immunocompromised: reports: Reviewed and negative PD PAST MEDICAL HISTORY - Past Medical History Cardiovascular: Hypertension, High cholesterol Respiratory: None Neuro: Peripheral neuropathy Endocrine/Autoimmune: Type 2 diabetes GI: GERD : None HEENT: None Psych: Depression, Anxiety Musculoskeletal: None Derm: None - Past Surgical History Past Surgical History: Yes 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 - Present Medications Home Medications: Ambulatory Orders Medication Instructions Recorded Confirmed Hydrochlorothiazide 25 mg PO DAILY 06/06/14 07/28/19 Losartan Potassium 100 mg PO DAILY 06/06/14 07/28/19 Metformin HCl 1,000 mg PO BIDWM 06/06/14 07/28/19 Pravastatin Sodium 20 mg PO QPM 06/06/14 07/28/19 Sertraline HCl 100 mg PO DAILY 06/06/14 07/28/19 Gabapentin 300 mg PO QPM 01/07/17 07/28/19 Insulin Glargine [Lantus] 60 unit SUBQ QPM 01/07/17 07/28/19 Insulin Lispro [Humalog] 2 - 10 unit SQ TIDWM 01/07/17 07/28/19 Meclizine HCl 25 mg PO TID PRN 07/28/19 07/28/19 - Allergies Allergies/Adverse Reactions: Allergies Allergy/AdvReac Type Severity Reaction Status Date / Time codeine Allergy Intermediate Unknown Verified 11/17/18 11:43 - Social History Does the pt smoke?: No Smoking Status: Never smoker Does the pt drink ETOH?: No Does the pt have substance abuse?: No - POLST Patient has POLST: No PD ED PE NORMAL - Vitals Vital signs reviewed: Yes - General General: Alert and oriented X 3, No acute distress - HEENT HEENT: Atraumatic, PERRL, EOMI, Moist mucous membranes - Neck Neck: Supple, no meningeal sign - Cardiac Cardiac: RRR, No murmur - Respiratory Respiratory: No respiratory distress, Clear bilaterally - Abdomen Abdomen: Soft, Non tender, Non distended - Derm Derm: Normal color, Warm and dry, No rash - Extremities Extremities: No deformity, Normal ROM s pain, No edema, No calf tenderness / cord - Neuro Neuro: Alert and oriented X 3, hod carrier 2-12 intact, No motor deficit, No sensory de ficit, Normal speech - Psych Psych: Normal mood, Normal affect Results - Vitals Vitals: Oxygen O2 Source Room air - EKG (time done) 1333 Rate: Rate (enter#) (91) Rhythm: NSR [place]: Normal Intervals: Normal AR QRS: Normal Ischemia: Normal ST segments, Non specific changes Compare to prior EKG: Old EKG unavailable Computer interpretation: Agree with computer - Labs Labs: Laboratory Tests 07/28/19 07/28/19 07/28/19 13:35 13:35 13:35 WBC 9.3 RBC 4.45 Hgb 12.8 Hct 38.0 MCV 85.4 MCH 28.8 MCHC 33.7 RDW 13.2 Plt Count 362 MPV 9.8 Neut # (Auto) 6.0 Lymph # (Auto) 2.7 [place] # (Auto) 0.5 Eos # (Auto) 0.1 Baso # (Auto) 0.0 Absolute Nucleated RBC 0.00 Nucleated RBC % 0.0 PT 14.5 H INR 1.3 H Sodium 135 Potassium 3.3 L Chloride 96 L Carbon Dioxide 27 Anion Gap 12.0 BUN 16 Creatinine 0.6 Estimated GFR (MDRD) 104 Glucose 159 H Calcium 9.0 Total Bilirubin 0.4 AST 18 ALT 14 Alkaline Phosphatase 78 Troponin I High Sens B-Natriuretic Peptide Total Protein 8.4 H Albumin 3.9 Globulin 4.5 H Albumin/Globulin Ratio 0.9 L Lipase 66 H 07/28/19 07/28/19 13:35 13:35 WBC RBC Hgb Hct MCV MCH MCHC RDW Plt Count MPV Neut # (Auto) Lymph # (Auto) [place] # (Auto) Eos # (Auto) Baso # (Auto) Absolute Nucleated RBC Nucleated RBC % PT INR Sodium Potassium Chloride Carbon Dioxide Anion Gap BUN Creatinine Estimated GFR (MDRD) Glucose Calcium Total Bilirubin AST ALT Alkaline Phosphatase Troponin I High Sens 2.5 B-Natriuretic Peptide 16 Total Protein Albumin Globulin Albumin/Globulin Ratio Lipase - Rads (name of study) Chest x-ray Radiology: Final report received, EMP read indepedently, See rad report (Final radiologist interpretation: No acute disease in the chest.) PD MEDICAL DECISION MAKING - ED course Complexity details: reviewed old records, reviewed results, re-evaluated patient, considered differential, d/w patient ED course: Patient was worked up with labs, including troponin, as well as EKG, and chest x-ray. She remained hemodynamically stable in the emergency department. She had initially negative work-up including normal troponin, but I was concerned about her risk factors and her story, which was concerning for unstable angina. I spoke with Dr. De La Cruz, who is on-call for cardiology, and he did agree that she should be admitted to the hospital and ruled out. He stated that at this point, there Was nothing to indicate that they would catheterize this patient while admitted, and he recommended serial troponins, followed by stress test. He stated that his clinic could follow-up with the patient after discharge. I spoke with Dr. Martinez, her on-call hospitalist, and she was agreeable to admitting the patient for observation. I discussed the plan with the patient she was agreeable. She had received already aspirin today and had been given 2 doses of nitroglycerin sublingually, which did bring her pain down to about a 1 out of 10. She had also received a dose of IV morphine 2 mg. An inch of nitroglycerin Paste was placed on the patient's chest wall. She was given a heparin bolus initially upon arrival, as I did not know whether the patient ultimately would end up needing potentially cardiac catheterization. Given that the pt will not need cardiac catheterization, however, Dr. Martinez requested Lovenox, instead, which the pt was given in the ED. Patient remained stable throughout the rest of her stay in the emergency department until transfer to the floor. Departure - Departure Disposition: [facility] DC/Jessica Clinical Impression: Unstable angina Condition: Stable Discharge Date/Time: 07/28/19 16:54
--- NOTE | 2019-07-28 14:12 | XRAY Report ---
Reason: Chest Pain Procedure Date: 07/28/2019 Accession Number: [id number] / [id number] Procedure: XR - Chest 1 View X-Ray CPT Code: 87819 Final Report FULL RESULT: EXAM: CHEST RADIOGRAPHY EXAM DATE: 07/28/2019 02:03 PM. CLINICAL HISTORY: Chest pain. Left chest and arm pain. COMPARISON: CHEST 1 VIEW 05/31/2015 7:16 AM. TECHNIQUE: 1 view. FINDINGS: Lungs/Pleura: No focal opacities evident. No pleural effusion. No pneumothorax. Mediastinum: Heart size upper normal. Aorta is mildly tortuous. Other: Bilateral shoulder calcific tendinosis, left greater than right. IMPRESSION: 1. No acute disease in the chest. RADIA
[2019-07-28] MEDS ORDERED: NITROGLYCERIN 2% PASTE TOP STA (15:24)
[2019-07-28] MEDS ORDERED: ENOXAPARIN 100 MG/ML SYRINGE SUBQ STA (15:31)
[2019-07-28] MEDS ORDERED: ZOLPIDEM 5 MG TABLET PO PRN (15:53)
[2019-07-28] MEDS ORDERED: SODIUM CHLORIDE FLUSH 0.9% 10 ML SYRINGE IVP PRN (15:53)
[2019-07-28] MEDS ORDERED: MORPHINE 2 MG/ML CARPUJECT IVP PRN (15:53)
[2019-07-28] MEDS ORDERED: ONDANSETRON 4 MG/2 ML VIAL IVP PRN (15:53)
[2019-07-28] MEDS ORDERED: NITROGLYCERIN 2% PASTE TOP ONE (15:57)
[2019-07-28] MEDS ORDERED: NITROGLYCERIN SL 0.4 MG TABLET SL PRN (15:59)
--- NOTE | 2019-07-28 16:04 | PHARMACY PROGRESS NOTE ---
- Best Possible Medication History Admit Date and Time: Patient in ED Processed by: Pharmacy Medication History completed: Yes Secondary Source(s): Physician records, Pharmacy records, Insurance records As the person ultimately responsible for medication therapy, providers are able to order a medication from an existing home medication list in [facility] via the "Reconcile Routine" prior to Confirmation of that medication by cad application support specialist. Such practice is discouraged except when the physician, in their clinical judgment, deems that a medical need exists for a medication without regard to previous use.
[2019-07-28] MEDS ORDERED: MECLIZINE 12.5 MG TABLET PO PRN (16:10)
[2019-07-28] MEDS ORDERED: LORazepam 0.5 MG TABLET PO PRN (16:16)
--- NOTE | 2019-07-28 16:19 | HISTORY & PHYSICAL EXAMINATION ---
Chief Complaint - Chief Complaint Chief Complaint: chest pain History of Present Illness - History of Present Illness HPI Comment/Other: This is a 54-yrs old female with a PMH significant for HTN, HLD, DM2, sleep apnea, anxiety,who present ER complain of chest pain. Pt report she had left arm and shoulder pain that started yesterday morning. the pain seemed to be much worse, which woke her up in the middle of the night. she was seen by PCP for a blood draw and EKG, then pt's PCP sent pt to ER for further evaluation. she her pain was intermittent throughout yesterday to today. she also report she had sharp stabbing pains under her left breast. Nothing make the pain better or worsen. She rates her current pain is a 2-5 out of 10. She report she had nausea but denies vomiting. She denies shortness of breath, diaphoresis, fever, chill. pt report her mother had a stent placed in her 50s. She report she has been a smoker until 5 years ago. she report nitro pack did help her chest pain. CXR reveals bilateral shoulder calcific tendinosis, left greater than right, no acute disease in the chest. Initially Troponin is 2.5. EKG is pending. pt is af ebrile and hemodynamic stable. pt is admitted in observation unit for further evaluation and treatment. discussed with care goal with pt, pt would like to have full code. 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 she denies alcohol and drug abuse. 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 - POLST Patient has POLST: No Meds/Allgy - Home Medications Home Medications: Ambulatory Orders Medication Instructions Recorded Confirmed Hydrochlorothiazide 25 mg PO DAILY 06/06/14 07/28/19 Losartan Potassium 100 mg PO DAILY 06/06/14 07/28/19 Metformin HCl 1,000 mg PO BIDWM 06/06/14 07/28/19 Pravastatin Sodium 20 mg PO QPM 06/06/14 07/28/19 Sertraline HCl 100 mg PO DAILY 06/06/14 07/28/19 Gabapentin 300 mg PO QPM 01/07/17 07/28/19 Insulin Glargine [Lantus] 60 unit SUBQ QPM 01/07/17 07/28/19 Insulin Lispro [Humalog] 2 - 10 unit SQ TIDWM 01/07/17 07/28/19 Meclizine HCl 25 mg PO TID PRN 07/28/19 07/28/19 - Allergies Allergies/Adverse Reactions: Allergies Allergy/AdvReac Type Severity Reaction Status Date / Time codeine Allergy Intermediate Unknown Verified 11/17/18 11:43 Review of Systems - Constitutional Constitutional: denies: Fatigue, Fever, Chills, Malaise, Weakness, Poor appetite, Diaphoresis, Night sweats - Eyes Eyes: denies: Pain, Irritation, Blurred vision, Spots in vision, Field loss, Vision loss, Dipolpia - Ears, Nose & Throat Ears, Nose & Throat: denies: Ear pain, Hearing aids, Tinnitus, Nasal pain, Nasal discharge, Nosebleeds, Sore throat, Mouth lesions, Bleeding gums - Cardiovascular Cariovascular: reports: Chest pain. denies: Irregular heart rate, Palpitations, Edema, Lightheadedness, Syncope, Exertional dyspnea, Decr. exercise tolerance - Respiratory Respiratory: denies: Cough, Sputum production, Wheezing, Snoring, Hemoptysis, Orthopnea, SOB at rest, SOB with exertion, Apnea, Stridor, Pleuritic pain - Gastrointestinal Gastrointestinal: reports: Nausea. denies: Abdominal pain, Abdominal distention, Constipation, Diarrhea, Change in bowel habits, Rectal bleeding, Black stools, Bloody stools, Vomiting, Bile emesis - Genitourinary Genitourinary: denies: Dysuria, Frequency, Urgency, Hematuria, Incontinence, Flank pain, Nocturia - Musculoskeletal Musculoskeletal: denies: Muscle pain, Back pain, Muscle aches, Stiffness, Limited range of motion, Muscle weakness, Gout, Joint pain - Integumentary Integumentary: denies: Rash, Pruritis, Lesions, Dryness, Lumps, Acne, Pigment changes, Nail changes - Neurological Neurological: denies: General weakness, Focal weakness, Headache, Dizziness, Numbness, Memory problems, Pre-existing deficit, Abnormal gait, Seizures, Incoordination, Slurred speech - Psychiatric Psychiatric: denies: Depression, Anxiety, Suicidal, Delusions, Hallucinations, Homicidal - Endocrine Endocrine: denies: Polyuria, Polydypsia, Polyphagia, Intolerance to cold - Hematologic/Lymphatic Hematologic/Lymphatic: denies: Anemia, Bruising, Petechiae, Blood clots, Lymphadenopathy, Bleeding tendencies Exam - Vital Signs Vital Signs: Vital Signs x48h Temp Pulse Resp BP Pulse Ox 07/28/19 15:40 69 13 116/70 99 07/28/19 15:21 73 12 116/67 99 07/28/19 14:29 72 14 116/71 98 07/28/19 14:07 76 16 132/86 H 100 07/28/19 13:44 84 15 112/73 95 07/28/19 13:30 37.2 C 81 16 135/76 H 97 - Physical Exam General Appearance: positive: No acute distress, Alert. negative: Lethargic Eyes Bilateral: positive: Normal inspection, PERRL, No lid inflammation ENT: positive: ENT inspection nml, Pharynx nml, No signs of dehydration. negative: Purulent nasal drainage Neck: positive: Nml inspection, Thyroid nml, No JVD, Trachea midline. negative: Thyromegaly, Lymphadenopathy (R), Lymphadenopathy (L), Stiff neck, Tracheal deviation Respiratory: positive: Chest non-tender, No respiratory distress, Breath sounds nml. negative: Wheezes, Rales, Rhonchi Cardiovascular: positive: Regular rate & rhythm, No murmur, No gallop. negative: Irregularly irregular, Extrasystoles, Tachycardia, Bradycardia, JVD present, Systolic murmur, Diastolic murmur Peripheral Pulses: positive: 2+ Abdomen: positive: Non-tender, No organomegaly, Nml bowel sounds, No distention. negative: Tenderness, Guarding, Rebound Back: positive: Nml inspection. negative: CVA tenderness (R), CVA tenderness (L) Skin: positive: Color nml, No rash, Warm, Dry. negative: Cyanosis, Diaphoresis, Pallor Extremities: positive: Non-tender, Full ROM, Nml appearance. negative: Calf tenderness, Rk's sign/cords Neurologic/Psychiatric: positive: Oriented x3, Motor nml, Sensation nml, Mood/affect nml. negative: Weakness, Sensory loss, Facial droop, Slurred/abnml speech, Depressed mood/affect Sepsis Event Note (H) - Evaluation Current Stage of Sepsis: Ruled out Conclusion/Plan - Problem List (1) Chest pain Conclusion/Plan: pt present left shoulder, left arm, and left sternal chest pain, nitro release pt's chest pain although pt's initially troponin is negative for ACS. pt report her EKG is unremarkable in her PCP office, our EKG is still pending. ER provider already give pt Lovenox 120 mg and Heparin 5000 unit. plan: serial troponin test order Aspirin 325 mg daily plus Lovenox now nitro and Morphine PRN, supplement of O2 as needed. ECHO stress test tele and vital monitor (2) Diabetes Conclusion/Plan: pt took Lantus 60 unit QPM, will resume home, SSI, ACHS, check A1C and order hypoglycemia protocol (3) HTN (hypertension) Conclusion/Plan: stable, will resume home meds (4) HLD (hyperlipidemia) Conclusion/Plan: check Lipid panel, resume home Pravastatin (5) Anxiety Conclusion/Plan: pt present anxiety, add Ativan PRN (6) GERD (gastroesophageal reflux disease) Conclusion/Plan: pt has hx of GERD, order Protonic and add GI cocktail PRN - Lab Results Fish Bones: 07/28/19 13:35 07/28/19 13:35 Core Measures - Anticipated LOS I expect patient to be DC'd or transferred within 96 hours.: Yes - DVT/VTE - Prophylaxis VTE/DVT Device ordered at admit?: Yes VTE/DVT Prophylaxis med ordered at admit?: Yes
[2019-07-28] MEDS: ASPIRIN 325 MG TABLET PO SCH (16:44)
[2019-07-28] MEDS: SODIUM CHLORIDE FLUSH 0.9% 10 ML SYRINGE IVP SCH ×2 (16:59→23:54)
[2019-07-28] MEDS ORDERED: GI COCKTAIL 120 ML BOTTLE PO PRN (17:01)
[2019-07-28] MEDS: INSULIN ASPART 300 UNIT/3 ML PEN SUBQ SCH ×2 (17:04→21:15)
[2019-07-28] MEDS: PANTOPRAZOLE 40 MG TABLET PO SCH (17:06)
[2019-07-28] MEDS ORDERED: POTASSIUM CHLORIDE 20 MEQ TABLET PO ONE (17:15)
[2019-07-28 19:14] LABS: MUDS CUTOFF CONCENTRATIONS CUTOFF CONC BELOW:
[2019-07-28 19:27] LABS: AMPHETAMINE SCREEN,URINE NEGATIVE (NEGATIVE); BENZODIAZEPINES SCREEN, URINE NEGATIVE (NEGATIVE); COCAINE SCREEN URINE NEGATIVE (NEGATIVE); METHADONE SCREEN, URINE NEGATIVE (NEGATIVE); METHAMPHETAMINES SCREEN, URINE NEGATIVE (NEGATIVE); OPIATE SCREEN, URINE POSITIVE (NEGATIVE); OXYCODONE SCREEN, URINE NEGATIVE (NEGATIVE); PROPOXYPHENE SCREEN, URINE NEGATIVE (NEGATIVE); TRICYCLIC ANTIDEPRESSANT,URINE NEGATIVE (NEGATIVE)
[2019-07-28] MEDS ORDERED: GABAPENTIN 300 MG CAPSULE PO SCH (21:00)
[2019-07-28] MEDS ORDERED: PRAVASTATIN 40 MG TABLET PO SCH (21:00)
[2019-07-28] MEDS ORDERED: INSULIN GLARGINE 300 UNIT/3 ML PEN SUBQ SCH (21:00)
[2019-07-28] MEDS ORDERED: ENOXAPARIN 120 MG/0.8 ML SYRINGE SUBQ SCH (22:30)
[2019-07-29] MEDS: ACETAMINOPHEN 325 MG TABLET PO PRN ×2 (00:07→06:57)
[2019-07-29 04:52] LABS: BASOPHILS % (AUTO) 0.6 %; EOSINOPHILS # (AUTO) 0.2 10^3/uL (0.0-0.7); EOSINOPHILS % (AUTO) 2.2 %; HGB - HEMOGLOBIN 11.4 g/dL (12.0-16.0); LYMPHOCYTES # (AUTO) 2.5 10^3/uL (1.5-3.5); LYMPHOCYTES % (AUTO) 34.4 %; MEAN CORPUSCULAR HEMOGLOBIN 28.1 pg (27.0-31.0); MEAN CORPUSCULAR HGB CONC 32.6 g/dL (32.0-36.0); MEAN CORPUSCULAR VOLUME 86.2 fL (81.0-99.0); MEAN PLATELET VOLUME 9.4 fL (7.9-10.8); MONOCYTES # (AUTO) 0.6 10^3/uL (0.0-1.0); MONOCYTES % (AUTO) 7.6 %; NEUTROPHILS % (AUTO) 54.6 %; PLT - PLATELET COUNT 278 10^3/uL (130-450); RED BLOOD COUNT 4.06 10^6/uL (4.20-5.40); RED CELL DISTRIBUTION WIDTH 13.2 % (12.0-15.0); WHITE BLOOD COUNT 7.3 x10^3/uL (4.8-10.8)
[2019-07-29 05:06] LABS: BUN - BLOOD UREA NITROGEN 15 mg/dL (6-20); CALCIUM 8.6 mg/dL (8.5-10.3); CARBON DIOXIDE - CO2 29 mmol/L (21-32); CHLORIDE 99 mmol/L (101-111); CHOL/HDL RATIO 4.8 (<4.4); CHOLESTEROL 152 mg/dL; CREATININE 0.5 mg/dL (0.4-1.0); GLUCOSE 161 mg/dL (70-100); HDL CHOLESTEROL 32 mg/dL; LDL CHOLESTEROL,CALCULATED 78 mg/dL; LDL/HDL RATIO 2.4 (<4.4); SODIUM 136 mmol/L (135-145); VLDL CHOLESTEROL 42 mg/dL
[2019-07-29] MEDS ORDERED: POTASSIUM CHLORIDE 20 MEQ TABLET PO ONE (05:16)
[2019-07-29 05:39] LABS: MAGNESIUM 1.8 mg/dL (1.7-2.8); PHOSPHORUS 4.2 mg/dL (2.5-4.6)
[2019-07-29] MEDS ORDERED: AMIODARONE 360 MG/200 ML 200 ML IV ONE (05:51)
[2019-07-29] MEDS ORDERED: AMIODARONE 150 MG/100 ML 100 ML IV ONE (05:51)
[2019-07-29] MEDS ORDERED: AMIODARONE 360 MG/200 ML 200 ML IV SCH ×2 (06:00→13:00)
[2019-07-29] MEDS: PANTOPRAZOLE 40 MG TABLET PO SCH (06:57)
--- NOTE | 2019-07-29 07:56 | DISCHARGE SUMMARY ---
"Discharge Summary Admit Date: 07/28/19 Discharge Date: 07/29/19 Discharging Provider: Florence Muniz MD Primary Care Provider: Frank Michelle MD Code Status: Attempt Resuscitation Condition at Discharge: Stable Discharge Disposition: 02 Transfer Acute Care Hosp - DIAGNOSES Discharge Diagnoses with Status of Each Condition: 1. Nonsustained V. tach 2. Atypical chest pain 3. Hypertension 4. Type 2 diabetes mellitus, uncontrolled with hyperglycemia, with complications, not on long-term insulin. 5. Morbid obesity - HPI History of Present Illness: This is a 54-yrs old female with a PMH significant for HTN, HLD, DM2, sleep apnea, anxiety,who present ER complain of chest pain. Pt report she had left arm and shoulder pain that started yesterday morning. the pain seemed to be much worse, which woke her up in the middle of the night. she was seen by PCP for a blood draw and EKG, then pt's PCP sent pt to ER for further evaluation. she her pain was intermittent throughout yesterday to today. she also report she had sharp stabbing pains under her left breast. Nothing make the pain better or worsen. She rates her current pain is a 2-5 out of 10. She report she had nausea but denies vomiting. She denies shortness of breath, diaphoresis, fever, chill. pt report her mother had a stent placed in her 50s. She report she has been a smoker until 5 years ago. she report nitro pack did help her chest pain. CXR reveals bilateral shoulder calcific tendinosis, left greater than right, no acute disease in the chest. Initially Troponin is 2.5. EKG is pending. pt is afebrile and hemodynamic stable. pt is admitted in observation unit for further evaluation and treatment. discussed with care goal with pt, pt would like to have full code. 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 Serial troponins. Number one 2.4, number two and three < 2.3 2. Chest x-ray no acute disease in the chest. Bilateral shoulder tendinosis, left greater than right. Aorta mildly tortuous. 3. Echocardiogram done but results pending at the time of this dictation. - HOSPITAL COURSE Hospital Course: Emergency room physician had already spoken to Dr. Montero, [facility] cardiology. He had asked the patient to be placed under our care for serial cardiac enzymes, a stress test and an echo.During her stay glucose was 175 and 161. Tox screen was positive for opiates and that was it. EKG before and after V. tach episode showed normal sinus rhythm, a deep Q wave in lead III, and poor R wave progression where she was not isoelectric until lead V5. Her glycosylated hemoglobin December 10, 2018 was 10.3%. March 11 2019 was 8.9%. June 24, 2019 she was 9%. Her creatinine of 0.5 is stable with all of her labs going back to 2015. She does have microalbuminuria on her urinalysis in the last few years. Overnight the patient was stable and then at 5 AM had 30 seconds of V. tach with a rate of about 300. She was dizzy, lightheaded, vaguely nauseated but no chest pain.She was transferred to ICU, EKG had no acute ST-T wave changes. She was started on amiodarone drip. She has received aspirin, statin, heparin drip, transition to Lovenox. We spoke to Dr. Montero who asked that the patient to be transferred to [facility] to be admitted to the hospitalist service. I spoke to Dr. Hayes, Hospitalist, this morning. Patient has been accepted in transfer. At discharge patient's temperature is 36.5, pulse 81, blood pressure 148/77, respirations 16. She is 100% saturated on room air. She is a 5 foot 4 inch white female who weighs 121.5 kg. Neck is supple. No JVD. Clear lungs with unlabored respiration. A regular rate and rhythm and no murmurs rubs or gallops. And extremities of the have only trace edema. She ambulates without any assistance.She does have some reproducible component to her atypical chest pain. This is when you press her anterior chest. She also has aching in her shoulders with passive range of motion. Tearful at the idea of having to be transferred and how she will get home. I suggested she let social work know as soon as she arrives and they can help her problem solve. She is transferred in stable condition. ECHO was ordered was done and results pending at the time of this dictation. - ALLERGIES Allergies/Adverse Reactions: Allergies Allergy/AdvReac Type Severity Reaction Status Date / Time codeine Allergy Intermediate Unknown Verified 11/17/18 11:43 - MEDICATIONS Home Medications: Ambulatory Orders Medication Instructions Recorded Confirmed Hydrochlorothiazide 25 mg PO DAILY 06/06/14 07/28/19 Losartan Potassium 100 mg PO DAILY 06/06/14 07/28/19 Metformin HCl 1,000 mg PO BIDWM 06/06/14 07/28/19 Pravastatin Sodium 20 mg PO QPM 06/06/14 07/28/19 Sertraline HCl 100 mg PO DAILY 06/06/14 07/28/19 Gabapentin 300 mg PO QPM 01/07/17 07/28/19 Insulin Glargine [Lantus] 60 unit SUBQ QPM 01/07/17 07/28/19 Insulin Lispro [Humalog] 2 - 10 unit SQ TIDWM 01/07/17 07/28/19 Meclizine HCl 25 mg PO TID PRN 07/28/19 07/28/19 - LABS Result Diagrams: 07/29/19 04:10 07/29/19 04:10 - SEPSIS Current Stage of Sepsis: Ruled out"
--- NOTE | 2019-07-29 08:47 | Discharge Plan ---
Discharge Plan Problem Reviewed?: Yes Disposition: 02 Transfer Acute Care Hosp Condition: Stable No Smoking: If you smoke, Please STOP! Call for help. Follow-up with: Frank Michelle DO [Primary Care Provider] -
[2019-07-29] MEDS: INSULIN ASPART 300 UNIT/3 ML PEN SUBQ SCH (08:54)
[2019-07-29] MEDS ORDERED: ENOXAPARIN 40 MG/0.4 ML SYRINGE SUBQ SCH (09:00)
[2019-07-29] MEDS ORDERED: LOSARTAN 50 MG TABLET PO SCH (09:00)
[2019-07-29] MEDS ORDERED: SERTRALINE 50 MG TABLET PO SCH (09:00)
[2019-07-29] MEDS: ASPIRIN 325 MG TABLET PO SCH (09:03)
[2019-07-29] MEDS: SODIUM CHLORIDE FLUSH 0.9% 10 ML SYRINGE IVP SCH (09:06)
[2019-07-29 09:21] VITALS: BP 138/77
== END 2019-07-29 09:50 | disposition short-term general hospital (02) ==
LOC: ED 13:26 → MS2 15:53 → ICU 07-29 06:56
PROVIDERS: ADMIT Nurse Practitioner Gerontology; ATTEND Specialist
DX: R07.89 Other chest pain (principal); I47.2 Ventricular tachycardia; I10 Essential (primary) hypertension; E11.65 Type 2 diabetes mellitus with hyperglycemia; E11.42 Type 2 diabetes mellitus with diabetic polyneuropathy; E66.01 Morbid (severe) obesity due to excess calories; Z68.42 Body mass index [BMI] 45.0-49.9, adult; G47.30 Sleep apnea, unspecified; K21.9 Gastro-esophageal reflux disease without esophagitis; F41.9 Anxiety disorder, unspecified; F32.9 Major depressive disorder, single episode, unspecified; E78.5 Hyperlipidemia, unspecified; M75.82 Other shoulder lesions, left shoulder; M75.81 Other shoulder lesions, right shoulder; Z79.4 Long term (current) use of insulin; Z87.891 Personal history of nicotine dependence; Z82.49 Family history of ischemic heart disease and other diseases of the circulatory system
CPT/HCPCS: 36415; 71045; 80048; 80053; 80061; 80306; 83690; 83735; 83880; 84100; 84484; 85025; 85610; 87150; 93005; 93306; 96361; 96372; 96374; 96375; 96376; 99285; A9270; G0378; J0282; J1650; J1815; 83036; 83721

== ENCOUNTER 2019-07-29 09:58 | Outpatient (CLI) | payer MEDICAID | END 2019-07-29 09:59 | disposition short-term general hospital (02) | LOC: EMS 09:58 | PROVIDERS: ATTEND Surgery | DX: I47.2 Ventricular tachycardia (principal); R07.9 Chest pain, unspecified | CPT/HCPCS: A0425; A0426 ==

== ENCOUNTER 2019-09-23 08:00 | Outpatient (CLI) | payer MEDICAID ==
[2019-09-23 14:00] LABS: ALBUMIN 3.5 g/dL (3.2-5.5); ALBUMIN/GLOBULIN RATIO 0.8 (1.0-2.2); ALKALINE PHOSPHATASE 95 IU/L (42-121); ALT ALANINE AMINOTRANSFERASE 15 IU/L (10-60); AST ASPARTATE AMINOTRANSFERASE 16 IU/L (10-42); BILIRUBIN,TOTAL 0.6 mg/dL (0.2-1.0); BUN - BLOOD UREA NITROGEN 19 mg/dL (6-20); CALCIUM 9.1 mg/dL (8.5-10.3); CARBON DIOXIDE - CO2 28 mmol/L (21-32); CHLORIDE 94 mmol/L (101-111); CHOL/HDL RATIO 4.3 (<4.4); CHOLESTEROL 173 mg/dL; CREATININE 0.6 mg/dL (0.4-1.0); GLUCOSE 245 mg/dL (70-100); HDL CHOLESTEROL 40 mg/dL; LDL CHOLESTEROL,CALCULATED 101 mg/dL; LDL/HDL RATIO 2.5 (<4.4); SODIUM 133 mmol/L (135-145); TOTAL PROTEIN 7.7 g/dL (6.7-8.2); VLDL CHOLESTEROL 32 mg/dL
[2019-09-23 14:39] LABS: HB2 TOTAL 12.8 g/dL; HEMOGLOBIN A1C 0.98 g/dL; HEMOGLOBIN A1C % 9.2 % (4.6-6.2)
== END 2019-09-23 23:59 | disposition home or self-care (01) ==
LOC: LAB.WCP 08:00
PROVIDERS: ATTEND Family Medicine
DX: E11.65 Type 2 diabetes mellitus with hyperglycemia (principal)
CPT/HCPCS: 36415; 80053; 80061; 83036; 83721

== ENCOUNTER 2019-12-23 07:00 | Outpatient (CLI) | payer MEDICAID ==
[2019-12-23 11:50] LABS: BASOPHILS % (AUTO) 0.6 %; EOSINOPHILS # (AUTO) 0.1 10^3/uL (0.0-0.7); EOSINOPHILS % (AUTO) 1.3 %; HGB - HEMOGLOBIN 12.5 g/dL (12.0-16.0); LYMPHOCYTES # (AUTO) 2.2 10^3/uL (1.5-3.5); LYMPHOCYTES % (AUTO) 30.6 %; MEAN CORPUSCULAR HGB CONC 31.8 g/dL (32.0-36.0); MEAN CORPUSCULAR VOLUME 87.9 fL (81.0-99.0); MEAN PLATELET VOLUME 9.9 fL (7.9-10.8); MONOCYTES # (AUTO) 0.4 10^3/uL (0.0-1.0); MONOCYTES % (AUTO) 5.9 %; NEUTROPHILS # (AUTO) 4.4 10^3/uL (1.5-6.6); PLT - PLATELET COUNT 341 10^3/uL (130-450); RED BLOOD COUNT 4.47 10^6/uL (4.20-5.40); RED CELL DISTRIBUTION WIDTH 13.2 % (12.0-15.0); WHITE BLOOD COUNT 7.1 x10^3/uL (4.8-10.8)
[2019-12-23 12:09] LABS: ALBUMIN 3.8 g/dL (3.2-5.5); ALBUMIN/GLOBULIN RATIO 0.9 (1.0-2.2); ALKALINE PHOSPHATASE 103 IU/L (42-121); ALT ALANINE AMINOTRANSFERASE 14 IU/L (10-60); AST ASPARTATE AMINOTRANSFERASE 15 IU/L (10-42); BILIRUBIN,TOTAL 0.6 mg/dL (0.2-1.0); BUN - BLOOD UREA NITROGEN 20 mg/dL (6-20); CALCIUM 9.2 mg/dL (8.5-10.3); CARBON DIOXIDE - CO2 30 mmol/L (21-32); CHLORIDE 97 mmol/L (101-111); CHOL/HDL RATIO 4.5 (<4.4); CHOLESTEROL 193 mg/dL; CREATININE 0.6 mg/dL (0.4-1.0); GLUCOSE 186 mg/dL (70-100); HDL CHOLESTEROL 43 mg/dL; LDL CHOLESTEROL,CALCULATED 108 mg/dL; LDL/HDL RATIO 2.5 (<4.4); SODIUM 136 mmol/L (135-145); TOTAL PROTEIN 8.2 g/dL (6.7-8.2); VLDL CHOLESTEROL 42 mg/dL
[2019-12-23 12:11] LABS: CREATININE,URINE 142.4 mg/dL; MICROALBUM/CREATININE RATIO,UR 25.3 ug/mg (<30.0); MICROALBUMIN,URINE 3.6 mg/dL (0-300.0)
[2019-12-23 14:36] LABS: HEMOGLOBIN A1c% 9.3 % (4.27-6.07)
== END 2019-12-23 23:59 | disposition home or self-care (01) ==
LOC: LAB.WCP 07:00
PROVIDERS: ATTEND Family Medicine
DX: E11.65 Type 2 diabetes mellitus with hyperglycemia (principal)
CPT/HCPCS: 36415; 80053; 80061; 82043; 82570; 83036; 83721; 85025

== ENCOUNTER 2019-12-25 22:35 | Emergency (ER) | payer MEDICAID ==
--- NOTE | 2019-12-25 22:39 | ED Physician Documentation ---
History of Present Illness - Stated complaint Stated Complaint: FEMALE - History obtained from History obtained from: Patient - Additonal information Additional information: 54 y/o f with a hx of UTI's presents with dysuria and urinary frequency without fevers or back pain. denies any allergies to antibiotics. Review of Systems Constitutional: reports: Reviewed and negative Eyes: reports: Reviewed and negative Ears: reports: Reviewed and negative Nose: reports: Reviewed and negative Throat: reports: Reviewed and negative Cardiac: reports: Reviewed and negative Respiratory: reports: Reviewed and negative GI: reports: Reviewed and negative : reports: Dysuria, Frequency Skin: reports: Reviewed and negative Musculoskeletal: reports: Reviewed and negative Neurologic: reports: Reviewed and negative Psychiatric: reports: Reviewed and negative Endocrine: reports: Reviewed and negative Immunocompromised: reports: Reviewed and negative PD PAST MEDICAL HISTORY - Past Medical History Cardiovascular: Hypertension, High cholesterol Respiratory: None Neuro: Peripheral neuropathy Endocrine/Autoimmune: Type 2 diabetes GI: GERD : None HEENT: None Psych: Depression, Anxiety Musculoskeletal: None Derm: None - Past Surgical History Past Surgical History: Yes 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 - Present Medications Home Medications: Ambulatory Orders Medication Instructions Recorded Confirmed Hydrochlorothiazide 25 mg PO DAILY 06/06/14 07/28/19 Losartan Potassium 100 mg PO DAILY 06/06/14 07/28/19 Metformin HCl 1,000 mg PO BIDWM 06/06/14 07/28/19 Pravastatin Sodium 20 mg PO QPM 06/06/14 07/28/19 Sertraline HCl 100 mg PO DAILY 06/06/14 07/28/19 Gabapentin 300 mg PO QPM 01/07/17 07/28/19 Insulin Glargine [Lantus] 60 unit SUBQ QPM 01/07/17 07/28/19 Insulin Lispro [Humalog] 2 - 10 unit SQ TIDWM 01/07/17 07/28/19 Meclizine HCl 25 mg PO TID PRN 07/28/19 07/28/19 Nitrofurantoin [Macrobid] 100 mg PO BID 5 Days #10 capsule 12/25/19 - Allergies Allergies/Adverse Reactions: Allergies Allergy/AdvReac Type Severity Reaction Status Date / Time codeine Allergy Intermediate Unknown Verified 12/25/19 22:48 - Social History Does the pt smoke?: No Smoking Status: Never smoker Does the pt drink ETOH?: No Does the pt have substance abuse?: No - POLST Patient has POLST: No PD ED PE NORMAL - Vitals Vital signs reviewed: Yes - General General: Alert and oriented X 3, No acute distress, Well developed/nourished - HEENT HEENT: PERRL - Neck Neck: Supple, no meningeal sign - Cardiac Cardiac: RRR, No murmur - Respiratory Respiratory: Clear bilaterally - Abdomen Abdomen: Normal bowel sounds, Soft, Non tender, Non distended, Other (suprapubic tenderness to palpitation) - Female Female : Deferred - Rectal Rectal: Deferred - Back Back: No CVA TTP, No spinal TTP - Derm Derm: Warm and dry - Extremities Extremities: No deformity - Neuro Neuro: Alert and oriented X 3 - Psych Psych: Normal mood, Normal affect Results - Vitals Vitals: Vital Signs - 24 hr 12/25/19 12/25/19 22:46 23:18 Temperature 36.7 C Heart Rate 95 87 Respiratory 18 18 Rate Blood Pressure 156/88 H 123/72 O2 Saturation 98 98 Oxygen O2 Source Room air - Labs Labs: Laboratory Tests 12/25/19 22:44 Urine Color BROWN Urine Clarity TURBID Urine pH 5.5 Ur Specific [place] >=1.030 H Urine Protein >=300 H Urine Glucose (UA) 250 H Urine Ketones TRACE Urine Occult Blood LARGE H Urine Nitrite POSITIVE H Urine Bilirubin NEGATIVE Urine Urobilinogen 1 (NORMAL) Ur Leukocyte Esterase NEGATIVE Urine RBC TNTC H Urine WBC >25 H Ur Squamous Epith Cells FEW Squamous Urine Bacteria Moderate H Ur Microscopic Review INDICATED Urine Culture Comments INDICATED Urine HCG, Qual NEGATIVE PD MEDICAL DECISION MAKING - ED course Complexity details: reviewed results, re-evaluated patient, considered differential (acute cystitis, phenazopyridine and nitrofurantoin given in emergency department and prescription for macrobid. f/u w pcp on friday.), d/w patient Departure - Departure Disposition: 01 Home, Self Care Clinical Impression: Cystitis Condition: Stable Instructions: ED UTI Cystitis Female Follow-Up: Frank Michelle DO [Primary Care Provider] - 12/27/19 Prescriptions: Nitrofurantoin [Macrobid] 100 mg PO BID 5 Days #10 capsule Comments: Take antibiotics as directed. Please follow-up with your primary care provider on Friday for recheck. Discharge Date/Time: 12/25/19 23:18
[2019-12-25 23:02] LABS: GLUCOSE, URINE (UA) 250 mg/dL (NEGATIVE); KETONES,URINE (UA) TRACE mg/dL (NEGATIVE); LEUKOCYTE ESTERASE, URINE NEGATIVE (NEGATIVE); NITRITE,URINE POSITIVE (NEGATIVE); OCCULT BLOOD,URINE LARGE (NEGATIVE); PH,URINE 5.5 PH (5.0-7.5); PROTEIN,URINE >=300 mg/dL (NEGATIVE); UROBILINOGEN,URINE 1 (NORMAL) E.U./dL (NORMAL)
[2019-12-25 23:08] LABS: BILIRUBIN,URINE NEGATIVE (NEGATIVE); CLARITY,URINE TURBID (CLEAR); HCG UR QUAL NEGATIVE; ICTOTEST,URINE NEGATIVE
[2019-12-25 23:09] LABS: BACTERIA,URINE Moderate /HPF (None Seen); RBC,URINE TNTC /HPF (0-5); SQUAMOUS EPITHELIAL CELL,UR FEW Squamous (<= Few)
[2019-12-25] MEDS ORDERED: NITROFURANTOIN MACRO 100 MG CAPSULE PO STA (23:09)
[2019-12-25] MEDS ORDERED: PHENAZOPYRIDINE 100 MG TABLET PO STA (23:09)
[2019-12-25 23:18] VITALS: BP 123/72
== END 2019-12-25 23:18 | disposition home or self-care (01) ==
LOC: ED 22:35
DX: N30.90 Cystitis, unspecified without hematuria (principal); I10 Essential (primary) hypertension; E11.9 Type 2 diabetes mellitus without complications; Z79.4 Long term (current) use of insulin
CPT/HCPCS: 81001; 81025; 87086; 99283; A9270; 81003; 87077; 87181

== ENCOUNTER 2020-01-06 07:00 | Outpatient (CLI) | payer MEDICAID | END 2020-01-06 23:59 | disposition home or self-care (01) | LOC: LAB.R 07:00 | PROVIDERS: ATTEND Family Medicine | DX: E11.65 Type 2 diabetes mellitus with hyperglycemia (principal) | CPT/HCPCS: 87086 ==

== ENCOUNTER 2020-01-13 12:48 | Outpatient (CLI) | payer MEDICAID ==
--- NOTE | 2020-01-13 14:19 | Ultrasound Report ---
PROCEDURE: Pelvic w/Transvaginal INDICATIONS: PELVIC PAIN, ACUTE TECHNIQUE: Real-time scanning was performed of the pelvic organs, with image documentation. Additional endovagi nal scanning was necessary due to incomplete visualization of the adnexal and endometrial structures by transabdominal scanning. COMPARISON: None. FINDINGS: This is a markedly limited study given limited filling of the bladder and patient body hab itus. Transabdominal scanning: Limited scanning through the kidneys shows no hydronephrosis. No pathologi c free abdominal or pelvic fluid. Endovaginal scanning: Uterus: The uterus is poorly characterized and measures 10.5 cm in length. There is a left posterior intramural fibroid which measures 2.4 x 1.7 x 2.3 cm. Multiple nabothian cysts are visualized at the cervix. Ovaries: The ovaries are not visualized. IMPRESSION: Markedly limited study. Uterine fibroid. If further characterization is warranted, gynecological prot ocol MRI could be used. Reviewed by: Kathie Brown MD on 01/13/2020 2:17 PM PDT Approved by: Kathie Brown MD on 01/13/2020 2:17 PM PDT Station ID: [id number]
== END 2020-01-13 12:49 | disposition home or self-care (01) ==
LOC: DI 12:48
PROVIDERS: ATTEND Family Medicine
DX: R10.2 Pelvic and perineal pain (principal); D25.1 Intramural leiomyoma of uterus
CPT/HCPCS: 76830; 76856

== ENCOUNTER 2020-03-15 08:13 | Outpatient (CLI) | payer MEDICAID ==
--- NOTE | 2020-03-22 14:03 | Ultrasound Report ---
LIMITED ULTRASOUND OF LEFT BREAST AND AXILLA: 03/15/2020 CLINICAL: Focal left AXILLA pain. Comparison is made to exams dated: 03/15/2020 mammogram, 10/23/2018 mammogram, 07/01/2016 mammogram - [facility], 01/04/2013 mammogram, and 01/04/2013 ultrasound - [facility]. Ultrasound of the left breast axilla was performed. There is a benign lymph node in the left breast at 12 o'clock posterior depth. IMPRESSION: BENIGN There is no sonographic evidence of malignancy. The lymph node in the left breast is consistent with a lymph node and is benign. Return to annual mammogram screening schedule is recommended. This exam was interpreted at Station ID: [id number]. Electronically Signed By: Suraj Jacobsen acr/jesús:03/21/2020 15:50:55 Ultrasound BI-RADS: 2 Benign BI-RADS CATEGORY: (2) - 2 RECOMMENDATION: (ANNUAL) - Recommend routine annual screening mammography. [id number] return to screening LATERALITY: (B)
--- NOTE | 2020-03-22 14:03 | Mammography Report ---
BILATERAL DIGITAL DIAGNOSTIC MAMMOGRAM 3D/2D: 03/15/2020 CLINICAL: Left axillary pain. Chronic diffuse pain. Comparison is made to exams dated: 10/23/2018 mammogram, 07/01/2016 mammogram - [facility], and 01/04/2013 mammogram - [facility]. There are scattered fibroglandular element s in both breasts. There are benign calcifications in both breasts. There also are benign vascular calcifications in katya th breasts. No significant masses, calcifications, or other findings are seen in either breast. There has been no significant interval change. IMPRESSION: INCOMPLETE: NEEDS ADDITIONAL IMAGING EVALUATION No mammographic evidence of malignancy bilaterally. Given focal left axillary pain, recommend left B REAST US. BI-RADS 0. This exam was interpreted at Station ID: [id number]. NOTE: For mammograms, a report in lay terms will be sent to the patient. Approximately 15% of breast malignancies will not be visualized mammographically. In the management of a palpable breast mass, a negative mammogram must not discourage biopsy of a clinically suspicious lesion. Electronically Signed By: Suraj Jacobsen acr/:03/21/2020 15:51:13 ACR BI-RADS Category 0: Incomplete [id number] PARENCHYMAL PATTERN: (A) - The breast(s) demonstrate(s) scattered fibroglandular densities. BI-RADS CATEGORY: (0) - 0 Ultrasound [id number] Immediate follow-up LATERALITY: (L)
== END 2020-03-15 08:14 | disposition home or self-care (01) ==
LOC: DI 08:13
PROVIDERS: ATTEND Family Medicine
DX: N64.4 Mastodynia (principal)
CPT/HCPCS: 76642; 77066

== ENCOUNTER 2020-03-24 08:00 | Outpatient (CLI) | payer MEDICAID ==
[2020-03-24 19:50] LABS: CALCIUM 9.4 mg/dL (8.5-10.3); CREATININE 0.6 mg/dL (0.4-1.0)
[2020-03-24 21:01] LABS: HEMOGLOBIN A1c% 8.4 % (4.27-6.07)
== END 2020-03-24 23:59 | disposition home or self-care (01) ==
LOC: LAB.WCP 08:00
PROVIDERS: ATTEND Family Medicine
DX: E11.65 Type 2 diabetes mellitus with hyperglycemia (principal)
CPT/HCPCS: 36415; 80048; 83036

== ENCOUNTER 2020-06-28 08:00 | Outpatient (CLI) | payer MEDICAID ==
[2020-06-28 12:07] LABS: BASOPHILS % (AUTO) 0.5 %; EOSINOPHILS # (AUTO) 0.1 10^3/uL (0.0-0.7); EOSINOPHILS % (AUTO) 1.7 %; HCT - HEMATOCRIT 39.7 % (37.0-47.0); HGB - HEMOGLOBIN 12.6 g/dL (12.0-16.0); LYMPHOCYTES # (AUTO) 2.2 10^3/uL (1.5-3.5); LYMPHOCYTES % (AUTO) 26.8 %; MEAN CORPUSCULAR HEMOGLOBIN 28.5 pg (27.0-31.0); MEAN CORPUSCULAR HGB CONC 31.7 g/dL (32.0-36.0); MEAN CORPUSCULAR VOLUME 89.8 fL (81.0-99.0); MEAN PLATELET VOLUME 10.1 fL (7.9-10.8); MONOCYTES # (AUTO) 0.4 10^3/uL (0.0-1.0); MONOCYTES % (AUTO) 5.1 %; NEUTROPHILS # (AUTO) 5.4 10^3/uL (1.5-6.6); NEUTROPHILS % (AUTO) 65.3 %; PLT - PLATELET COUNT 340 10^3/uL (130-450); RED BLOOD COUNT 4.42 10^6/uL (4.20-5.40); RED CELL DISTRIBUTION WIDTH 13.2 % (12.0-15.0); WHITE BLOOD COUNT 8.3 x10^3/uL (4.8-10.8)
[2020-06-28 12:54] LABS: CREATININE,URINE 210.6 mg/dL; MICROALBUMIN,URINE 1.9 mg/dL (0-300.0)
[2020-06-28 12:55] LABS: THYROID STIMULATING HORMONE 3.03 uIU/mL (0.34-5.60)
[2020-06-28 12:56] LABS: ALBUMIN 3.9 g/dL (3.2-5.5); ALBUMIN/GLOBULIN RATIO 0.9 (1.0-2.2); ALKALINE PHOSPHATASE 83 IU/L (42-121); ALT ALANINE AMINOTRANSFERASE 21 IU/L (10-60); AST ASPARTATE AMINOTRANSFERASE 15 IU/L (10-42); BILIRUBIN,TOTAL 0.3 mg/dL (0.2-1.0); BUN - BLOOD UREA NITROGEN 19 mg/dL (6-20); CALCIUM 9.4 mg/dL (8.5-10.3); CARBON DIOXIDE - CO2 32 mmol/L (21-32); CHLORIDE 96 mmol/L (101-111); CHOLESTEROL 158 mg/dL; CREATININE 0.6 mg/dL (0.4-1.0); GFR - MDRD 104 (>89); GLUCOSE 147 mg/dL (70-100); HDL CHOLESTEROL 40 mg/dL; LDL CHOLESTEROL,CALCULATED 89 mg/dL; LDL/HDL RATIO 2.2 (<4.4); POTASSIUM 4.3 mmol/L (3.5-5.0); SODIUM 137 mmol/L (135-145); TOTAL PROTEIN 8.1 g/dL (6.7-8.2); TRIGLYCERIDES 145 mg/dL; VLDL CHOLESTEROL 29 mg/dL
[2020-06-28 13:27] LABS: ESTIMATED AVERAGE GLUCOSE 160 mg/dL (70-100); HEMOGLOBIN A1c% 7.2 % (4.27-6.07)
== END 2020-06-28 23:59 | disposition home or self-care (01) ==
LOC: LAB.WCP 08:00
PROVIDERS: ATTEND Family Medicine
DX: E11.9 Type 2 diabetes mellitus without complications (principal)
CPT/HCPCS: 36415; 80053; 80061; 82043; 82570; 83036; 83721; 84443; 85025

== ENCOUNTER 2020-06-29 08:00 | Outpatient (CLI) | payer MEDICAID | END 2020-06-29 08:01 | disposition home or self-care (01) | LOC: LAB 08:00 | PROVIDERS: ATTEND Family Medicine | DX: R30.0 Dysuria (principal) | CPT/HCPCS: 87086 ==

== ENCOUNTER 2020-10-04 07:06 | Outpatient (CLI) | payer MEDICAID ==
[2020-10-04 12:15] LABS: ESTIMATED AVERAGE GLUCOSE 183 mg/dL (70-100)
[2020-10-04 12:16] LABS: CALCIUM 9.7 mg/dL (8.5-10.3); CREATININE 0.5 mg/dL (0.4-1.0); POTASSIUM 3.8 mmol/L (3.5-5.0)
== END 2020-10-04 07:07 | disposition home or self-care (01) ==
LOC: LAB.N 07:06
PROVIDERS: ATTEND Family Medicine
DX: E11.9 Type 2 diabetes mellitus without complications (principal)
CPT/HCPCS: 36415; 80048; 83036

== ENCOUNTER 2020-10-05 08:10 | Outpatient (CLI) | payer MEDICAID ==
--- NOTE | 2020-10-05 10:36 | XRAY Report ---
PROCEDURE: Lumbar Spine 2 View INDICATIONS: CHRONIC LOW BACK PX TECHNIQUE: 2 views of the lumbar spine were acquired. COMPARISON: None. FINDINGS: Bones: 5 [id number] vertebrae are present. There is normal bony alignment. No vertebral body compression fractures. No suspicious bony lesions. Mild multilevel degenerative changes in the lowe r lumbar spine. There is facet arthrosis in the lower lumbar spine. Minimal leftward curvature of the lumbar spine. Degenerative changes of the left sacroiliac joint. Soft tissues: Overlying bowel gas pattern is normal. No suspicious soft tissue calcifications. IMPRESSION: 1. No acute abnormality. 2. Mild degenerative changes and facet arthrosis in the lower lumbar spine. 3. Minimal leftward curvature of the lumbar spine. 4. Degenerative changes of the left sacroiliac joint. Reviewed by: Suraj Jacobsen on 10/05/2020 10:34 AM PDT Approved by: Suraj Jacobsen on 10/05/2020 10:34 AM PDT Station ID: [id number]
== END 2020-10-05 08:11 | disposition home or self-care (01) ==
LOC: DI.N 08:10
PROVIDERS: ATTEND Family Medicine
DX: M47.816 Spondylosis without myelopathy or radiculopathy, lumbar region (principal); M47.818 Spondylosis without myelopathy or radiculopathy, sacral and sacrococcygeal region

== ENCOUNTER 2020-12-08 08:21 | Outpatient (CLI) | payer MEDICAID ==
--- NOTE | 2020-12-08 09:02 | SLEEP CARE CONSULTATION ---
Information from patient questionnaire entered by Lydia Abdalla. I have reviewed and concur with the information entered by Lydia Abdalla. This document represents the service I personally performed and the decisions made by , Marifer Trejo ARNP. History of Present Illness Service Date and Time: 12/08/2020 0821 Previous diagnosis: Moderate, Obstructive Sleep Apnea-Hypopnea Syndrome AHI: 20.8 (in 2019(28.8 in 2018) Reason for follow up: annual (last seen 01/2019 - never got CPAP) Prior sleep studies: Yes Year and Where: 2018 and 2018 - [facility] Type of Sleep Study: Polysomnography HPI additional information: JEFF CRAWFORD was diagnosed to have moderate, AHI 20.8, obstructive sleep apnea-hypopnea syndrome and returned today annual follow-up. She was not set up last year with a CPAP after a couple trials of trying to get set up. She returns to restart process. Subjective Initial [place] Sleepiness Scale score: 8 (in 2018) Current [place] Sleepiness Scale score: 18 Allergies and Home Medications Home medication list reviewed: Yes Allergy and home medication list: generic Trulicity depression med (possibly Doxepin) Physical Exam Heart Rate: 77 O2 Saturation: 96 Height: 5 ft 4 in Weight: 281 lb Body Mass Index: 48.2 BMI Classification: Morbidly Obese Impression and Plan 1. Suspected Obstructive Sleep Apnea-Hypopnea Syndrome, as previously diagnosed and and as suggested by a history of loud and irregular snoring, observed cessation of breath while asleep, morning headache, frequent awakening during the night, unrefreshed sleep, cognitive impairment, and excessive daytime sleepiness. Patient was ordered a CPAP in 2018. The [employer] set up to deliver her CPAP but she never received it despite several phone calls. She did call our office a couple times and we called the [employer] without any results. She gave up but recently her symptoms are getting worse and she is falling asleep at work. She would like to restart process to obtain CPAP therapy. I recommend proceeding to polysomnography to confirm the diagnosis and to assess severity since it has been a couple years since her last sleep study and she has not been on therapy. If the patient has significant sleep disordered breathing, a manual CPAP titration study will also be performed to find the optimal treatment pressure. I informed the patient of what the sleep studies involve and after some discussion, obtained agreement to proceed. The pathophysiology of obstructive sleep apnea-hypopnea syndrome was discussed with the patient and health risks of cardiovascular and cerebrovascular disease if not treated. Risks of drowsy driving discussed in detail and patient advised to avoid long distance driving and to black puller at the first sign of drowsiness. Patient agreed to plan. Patient has a past medical history of hypertension, depression and diabetes. * Schedule polysomnography +- manual CPAP titration study and return in 1-2 weeks after the study to discuss result and initiate therapy. * Avoid long distance driving or driving when feeling sleepy. * Avoid alcohol, sedative and muscle relaxant around bedtime. * Attempt to lose weight. * Review instructions provided by trained office staff on how to prepare for the sleep study. * Return for follow-up after sleep study completed. Counseling Topics: Weight loss health impact Visit Type: In Office Time Spent with Patient (minutes): 20 Provider Statement: I spent 100% of the Face to Face Visit with the patient with greater than 50% spent counseling the patient and coordination of care.
== END 2020-12-08 08:22 | disposition home or self-care (01) ==
LOC: SC 08:21
PROVIDERS: ATTEND Nurse Practitioner Family
DX: G47.33 Obstructive sleep apnea (adult) (pediatric) (principal); E66.01 Morbid (severe) obesity due to excess calories; Z68.42 Body mass index [BMI] 45.0-49.9, adult
CPT/HCPCS: 99212; 99213

== ENCOUNTER 2020-12-08 09:25 | Outpatient (CLI) | payer MEDICAID | END 2020-12-08 09:26 | disposition home or self-care (01) | LOC: SC 09:25 | PROVIDERS: ATTEND Nurse Practitioner Family | DX: G47.33 Obstructive sleep apnea (adult) (pediatric) (principal); R09.02 Hypoxemia; E11.9 Type 2 diabetes mellitus without complications; I10 Essential (primary) hypertension; F32.9 Major depressive disorder, single episode, unspecified | CPT/HCPCS: 95806 ==

== ENCOUNTER 2021-01-03 08:00 | Outpatient (CLI) | payer MEDICAID ==
[2021-01-03 12:37] LABS: ALBUMIN 3.5 g/dL (3.2-5.5); ALBUMIN/GLOBULIN RATIO 0.9 (1.0-2.2); BILIRUBIN,TOTAL 0.4 mg/dL (0.2-1.0); CREATININE 0.8 mg/dL (0.4-1.0); TOTAL PROTEIN 7.5 g/dL (6.7-8.2)
[2021-01-03 13:26] LABS: ESTIMATED AVERAGE GLUCOSE 232 mg/dL (70-100); HEMOGLOBIN A1c% 9.7 % (4.27-6.07)
== END 2021-01-03 23:59 | disposition home or self-care (01) ==
LOC: LAB.WCP 08:00
PROVIDERS: ATTEND Family Medicine
DX: E11.9 Type 2 diabetes mellitus without complications (principal)
CPT/HCPCS: 36415; 80053; 83036

== ENCOUNTER 2021-01-05 07:42 | Outpatient (CLI) | payer MEDICAID ==
--- NOTE | 2021-01-05 08:24 | SLEEP CARE CONSULTATION ---
Information from patient questionnaire entered by Lydia Abdalla. I have reviewed and concur with the information entered by Lydia Abdalla. This document represents the service I personally performed and the decisions made by , Marifer Trejo ARNP. History of Present Illness Service Date and Time: 01/05/2021 0742 Initial [place] Sleepiness Scale score: 8 (in 2018) Current [place] Sleepiness Scale score: 14 Additional HPI information: JEFF CRAWFORD returns for follow up and results of the recently performed home sleep study. I explained the pathophysiology behind obstructive sleep apnea. We then spent quite a bit of time discussing different treatment options. For mild obstructive sleep apnea, surgery and oral appliance are alternatives to nasal CPAP therapy but in moderate or severe cases, nasal CPAP is the most effective and reliable treatment. I reviewed the impact of weight changes on sleep apnea and strongly recommended losing weight. After some discussion, the patient opted to go with the nasal CPAP therapy. Nasal autoCPAP set at 4-15 cmH20 will be ordered with rationale explained. A manual titration study will be ordered if unable to find optimal pressure with office adjustments. I explained how CPAP machine works with sample devices [employer] Dreamstation and [employer] [id number] and what to expect when using the machine. Using CPAP every night in order to get used to it was emphasized. Patient advised to put CPAP mask on before getting into bed so as not to fall asleep without CPAP. To assist acclimation to CPAP use, it could also be used for a short time during day while reading or watching TV. The patient was instructed to call the CPAP supplier to discuss any mechanical problem that may occur. If the mask given is uncomfortable or is difficult to keep on through the night even with adjustment, contact the CPAP supplier as many will replace with another mask style if notified before 30 days. If snoring or perceives is not getting enough air or too much air from the machine, notify this office. AASM patient education PAP tips reviewed and given to patient. Patient counseled not drink alcohol less than 4 hours before bedtime as it can increase snoring and apnea. Patient was cautioned about risks of drowsy driving until sleepiness symptoms resolve. Sleep Study - Results Type of Sleep Study: Home sleep study Prior sleep studies: Yes Year and Where: 2018(psg) and 2017(psg) - [facility] Polysomnography/Home Sleep Study results: Physician Impression: The quality of the study is good. The length of the study is adequate (> 240 minutes). Please also see the tabulated and graphic data. 1. Obstructive Sleep Apnea-Hypopnea (ICD-10 G47.33), moderate, with an AHI of 19.4/hr and diana SaO2 of 77%. During the study, the patient had 19 apneas (19 obstructive, 0 central, 0 mixed) and 108 hypopneas. The longest episode lasted 105.0 seconds. The respiratory events occurred more frequently during supine sleep (supine AHI was 25.3 and non-supine, 18.24). 2. Hypoxemia (ICD-10 R09.02), moderate, with the lowest oxygen saturation of 77 % and 24.6 minutes with SaO2 under 90%. Baseline oxygen saturation was normal (Average oxygen saturation was 92%). Allergies and Home Medications Home medication list reviewed: Yes (new depression med x 2 days) Review of Systems Review of systems same as previous: No (increase in depression, new med) Physical Exam Heart Rate: 90 O2 Saturation: 97 Height: 5 ft 4 in Weight: 285 lb Body Mass Index: 48.9 BMI Classification: Morbidly Obese Impression and Plan 1. Obstructive Sleep Apnea-Hypopnea Syndrome, moderate, with lowest oxygen saturation of 77%. Obviously this is the cause of the patients symptoms of unrefreshed sleep, and excessive daytime sleepiness. Positive pressure therapy could benefit hypertension, diabetes and depression. As mentioned above, the patient will be started on nasal autoCPAP therapy with pressure set at 4-15 cmH2 O. A manual titration study will be completed if unable to find optimal treatment pressure with office adjustments. Compliance guidelines also reviewed. A copy of compliance guidelines will be given for reference at check out. 2. Hypoxemia, moderate, with the lowest oxygen saturation of 77 % and 24.6 minutes with SaO2 under 90%. Her baseline oxygen saturation was normal with an average oxygen saturation of 92%. * Nasal auto CPAP therapy, pressure at 4-15 cm H2O. * Attempt to lose weight. * Avoid alcohol consumption near bedtime. * Avoid supine sleep until using CPAP. * The patient is again cautioned about driving until sleepiness completely resolves. * Return one month after CPAP obtained. I will assess response to therapy and compliance at that time. Counseling Topics: Weight loss health impact Visit Type: In Office Time Spent with Patient (minutes): 23 Provider Statement: I spent 100% of the Face to Face Visit with the patient with greater than 50% spent counseling the patient and coordination of care.
== END 2021-01-05 07:43 | disposition home or self-care (01) ==
LOC: SC 07:42
PROVIDERS: ATTEND Nurse Practitioner Family
DX: G47.33 Obstructive sleep apnea (adult) (pediatric) (principal); R09.02 Hypoxemia; E66.01 Morbid (severe) obesity due to excess calories; Z68.42 Body mass index [BMI] 45.0-49.9, adult
CPT/HCPCS: 99212; 99213

== ENCOUNTER 2021-04-30 09:20 | Outpatient (CLI) | payer MEDICAID ==
[2021-04-30 17:55] LABS: HCT - HEMATOCRIT 45.5 % (37.0-47.0); HGB - HEMOGLOBIN 14.9 g/dL (12.0-16.0); MEAN CORPUSCULAR HGB CONC 32.7 g/dL (32.0-36.0); MEAN CORPUSCULAR VOLUME 94.6 fL (81.0-99.0); PLT - PLATELET COUNT 246 10^3/uL (130-450); RED BLOOD COUNT 4.81 10^6/uL (4.20-5.40); RED CELL DISTRIBUTION WIDTH 13.5 % (12.0-15.0)
[2021-04-30 17:56] LABS: BASOPHILS # (AUTO) 0.1 10^3/uL (0.0-0.1); BASOPHILS % (AUTO) 0.6 %; EOSINOPHILS # (AUTO) 0.5 10^3/uL (0.0-0.7); LYMPHOCYTES # (AUTO) 2.1 10^3/uL (1.5-3.5); LYMPHOCYTES % (AUTO) 23.5 %; MEAN PLATELET VOLUME 9.9 fL (7.9-10.8); MONOCYTES % (AUTO) 10.8 %; NEUTROPHILS # (AUTO) 5.3 10^3/uL (1.5-6.6); NEUTROPHILS % (AUTO) 58.5 %
[2021-04-30 20:32] LABS: ALBUMIN 3.8 g/dL (3.2-5.5); ALBUMIN/GLOBULIN RATIO 0.9 (1.0-2.2); ALKALINE PHOSPHATASE 89 IU/L (42-121); ALT ALANINE AMINOTRANSFERASE 13 IU/L (10-60); AST ASPARTATE AMINOTRANSFERASE 15 IU/L (10-42); BILIRUBIN,TOTAL 0.3 mg/dL (0.2-1.0); BUN - BLOOD UREA NITROGEN 15 mg/dL (6-20); CALCIUM 9.5 mg/dL (8.5-10.3); CARBON DIOXIDE - CO2 30 mmol/L (21-32); CHLORIDE 95 mmol/L (101-111); CHOL/HDL RATIO 3.6 (<4.4); CHOLESTEROL 157 mg/dL; CREATININE 0.6 mg/dL (0.4-1.0); GFR - MDRD 104 (>89); GLUCOSE 151 mg/dL (70-100); HDL CHOLESTEROL 44 mg/dL; LDL CHOLESTEROL,CALCULATED 82 mg/dL; LDL/HDL RATIO 1.9 (<4.4); POTASSIUM 3.9 mmol/L (3.5-5.0); SODIUM 136 mmol/L (135-145); TOTAL PROTEIN 8.2 g/dL (6.7-8.2); TRIGLYCERIDES 156 mg/dL; VLDL CHOLESTEROL 31 mg/dL
[2021-04-30 20:42] LABS: CREATININE,URINE 81.1 mg/dL; MICROALBUM/CREATININE RATIO,UR 223.2 ug/mg (<30.0); MICROALBUMIN,URINE 18.1 mg/dL (0-300.0)
[2021-04-30 21:20] LABS: ESTIMATED AVERAGE GLUCOSE 189 mg/dL (70-100); HEMOGLOBIN A1c% 8.2 % (4.27-6.07)
== END 2021-04-30 09:21 | disposition home or self-care (01) ==
LOC: LAB.N 09:20
PROVIDERS: ATTEND Family Medicine
DX: E11.9 Type 2 diabetes mellitus without complications (principal)
CPT/HCPCS: 36415; 80053; 80061; 82043; 82570; 83036; 83721; 85025

== ENCOUNTER 2021-07-19 08:17 | Outpatient (CLI) | payer MEDICAID ==
[2021-07-19 09:06] VITALS: BP 133/72
--- NOTE | 2021-07-19 09:06 | SLEEP CARE CONSULTATION ---
Information from patient questionnaire entered by Karthikeyan Mar MA. I have reviewed and concur with the information entered by Karthikeyan Mar MA. This document represents the service I personally performed and the decisions made by , Marifer Trejo ARNP. History of Present Illness Service Date and Time: 07/19/2021 0817 Previous diagnosis: Moderate, Obstructive Sleep Apnea-Hypopnea Syndrome AHI: 19.4 (in 2020 (20.8 in 2018)(28.8 in 2017)) Reason for follow up: first compliance (START DATE 05/21/2021, RESMED,) Equipment type: CPAP Equipment obtained from: Other ([employer]) Mask style: Nasal pillows Backup mask available: No (will keep old mask when replaced) Last cushion change: 1 month Prior sleep studies: Yes Year and Where: 2018(psg) and 2017(psg) - [facility] Type of Sleep Study: Home sleep study HPI additional information: JEFF CRAWFORD was diagnosed to have moderate, AHI 20.8, obstructive sleep apnea-hypopnea syndrome and returned today for CPAP therapy first compliance follow-up. Sleep Study - Results Type of Sleep Study: Home sleep study Prior sleep studies: Yes Year and Where: 2018(psg) and 2017(psg) - [facility] CPAP Compliance Data - Data Reviewed with Patient Average duration of nightly device use: 5 HOURS 0 MINUTES Compliance rate %: 67 Current pressure setting (cmH2O): 4-15 (median 7.1, avg 11.7, max 13.0) Average residual AHI: 1.3 Central apnea: .3 Obstructive apnea: .7 Average large leak: 13.4 Subjective Missed days of use due to: reports: other (anxiety issues) Patient concerns: denies: aerophagia, mask discomfort, air blowing in eyes, mask leak noise, condensation in mask/hose, nasal congestion, dry mouth, nose, throat, epistaxis Observed to snore while using device: No Current pressure setting perceived as: comfortable On therapy, patient: reports: sleeping better, awakening more refreshed, being more awake and alert during the day, more rested overall. denies: drowsiness while driving Initial [place] Sleepiness Scale score: 8 (in 2017) Current [place] Sleepiness Scale score: 10 (06/2021) Allergies and Home Medications Known drug allergies: Yes (CODEINE) Home medication list reviewed: Yes (no changes) Allergy and home medication list: Allergies codeine Allergy (Intermediate, Verified 12/25/19 22:48) Unknown Review of Systems Review of systems same as previous: Yes (no changes) Physical Exam Vital signs obtained and entered by: MAYUR ADLER Blood Pressure: 133/72 (LEFT, PULSE 96, RESP 18, ) Heart Rate: 95 O2 Saturation: 96 Height: 5 ft 4 in Weight: 274 lb Weight change since last visit: 11 lb loss Body Mass Index: 47.0 BMI Classification: Morbidly Obese Impression and Plan 1. Obstructive Sleep Apnea-Hypopnea Syndrome, moderate, with good treatment compliance and good apnea control. On CPAP therapy, the patient has better sleep quality and is more rested overall. Patient changed to a nasal pillows mask and finds it to be more comfortable and she can tolerate it better. She has issues with anxiety and sometimes has to take the mask off but she is putting the mask on every night. Her compliance is at 67% but I have no doubt she will be able to reach 70% or better at her next visit. The patients pressure will be changed to autoCPAP 11-13 cmH20 to reflect the pressures she is using. Patient advised to contact me if pressure change is uncomfortable so that it can be adjusted. Goals for apnea control discussed. Patient's apnea severity and rationale for treatment to reduce apnea, improve sleep quality and reduce cardiovascular and cerebrovascular events was reviewed. I also reviewed the benefit of consistent device use of CPAP for hypertension, diabetes and depression. 2. Obesity, unspecified. Patient has lost weight (11 lbs). Currently patients BMI is 47.0. Obesity increases the risk of apnea, CPAP pressure requirements and overall health risks especially cardiovascular and diabetes. Thus patient is advised to continue to try to lose weight. Weight loss can be done with reducing portion size, reducing refined foods and balancing content with vegetables, fruit and whole grain foods. In addition, patient encouraged to get regular exercise. The patient's CPAP pressure range should accommodate some weight loss. Symptoms to report for additional pressure adjustment discussed. * Change auto CPAP pressure to 11-13 cmH2O * Notify me if snoring with mask or feeling that the pressure is too much or too little * Continue to try to lose weight * Call this office if any problems using CPAP * Return for follow up in 1-2 months, or sooner if concerns arise Counseling Topics: Spare mask, Weight loss health impact Visit Type: In Office Time Spent with Patient (minutes): 25 Provider Statement: I spent 100% of the Face to Face Visit with the patient with greater than 50% spent counseling the patient and coordination of care.
== END 2021-07-19 08:18 | disposition home or self-care (01) ==
LOC: SC 08:17
PROVIDERS: ATTEND Nurse Practitioner Family
DX: G47.33 Obstructive sleep apnea (adult) (pediatric) (principal); E66.01 Morbid (severe) obesity due to excess calories; Z68.42 Body mass index [BMI] 45.0-49.9, adult
CPT/HCPCS: 99212; 99213

== ENCOUNTER 2021-08-06 16:53 | Outpatient (CLI) | payer MEDICAID ==
[2021-08-06 21:11] LABS: BASOPHILS % (AUTO) 0.3 %; EOSINOPHILS # (AUTO) 0.1 10^3/uL (0.0-0.7); EOSINOPHILS % (AUTO) 0.7 %; HCT - HEMATOCRIT 38.5 % (37.0-47.0); HGB - HEMOGLOBIN 12.7 g/dL (12.0-16.0); LYMPHOCYTES # (AUTO) 2.1 10^3/uL (1.5-3.5); LYMPHOCYTES % (AUTO) 19.5 %; MEAN CORPUSCULAR HEMOGLOBIN 28.6 pg (27.0-31.0); MEAN CORPUSCULAR VOLUME 86.7 fL (81.0-99.0); MEAN PLATELET VOLUME 10.4 fL (7.9-10.8); MONOCYTES # (AUTO) 0.5 10^3/uL (0.0-1.0); MONOCYTES % (AUTO) 4.5 %; NEUTROPHILS # (AUTO) 7.8 10^3/uL (1.5-6.6); NEUTROPHILS % (AUTO) 74.6 %; PLT - PLATELET COUNT 405 10^3/uL (130-450); RED BLOOD COUNT 4.44 10^6/uL (4.20-5.40); RED CELL DISTRIBUTION WIDTH 13.1 % (12.0-15.0); WHITE BLOOD COUNT 10.5 x10^3/uL (4.8-10.8)
[2021-08-06 21:23] LABS: ALBUMIN/GLOBULIN RATIO 0.9 (1.0-2.2); BILIRUBIN,TOTAL 0.5 mg/dL (0.2-1.0); CALCIUM 9.5 mg/dL (8.5-10.3); CREATININE 0.8 mg/dL (0.4-1.0); POTASSIUM 3.5 mmol/L (3.5-5.0); TOTAL PROTEIN 8.6 g/dL (6.7-8.2)
[2021-08-06 21:40] LABS: THYROID STIMULATING HORMONE 2.41 uIU/mL (0.34-5.60)
[2021-08-07 12:50] LABS: ESTIMATED AVERAGE GLUCOSE 174 mg/dL (70-100); HEMOGLOBIN A1c% 7.7 % (4.27-6.07)
== END 2021-08-06 16:54 | disposition home or self-care (01) ==
LOC: LAB.N 16:53
PROVIDERS: ATTEND Family Medicine
DX: E11.9 Type 2 diabetes mellitus without complications (principal); Z13.29 Encounter for screening for other suspected endocrine disorder; I10 Essential (primary) hypertension
CPT/HCPCS: 36415; 80053; 83036; 84443; 85025

== ENCOUNTER 2021-08-09 08:00 | Outpatient (CLI) | payer MEDICAID ==
[2021-08-14 15:16] LABS: ALBUMIN 3.8 g/dL (3.8-4.8); ALPHA 1 GLOBULIN 0.3 g/dL (0.2-0.3); ALPHA 2 GLOBULIN 0.8 g/dL (0.5-0.9); BETA 1 GLOBULIN 0.6 g/dL (0.4-0.6); BETA 2 GLOBULIN 0.7 g/dL (0.2-0.5); GAMMA GLOBULIN 1.3 g/dL (0.8-1.7)
== END 2021-08-09 08:01 | disposition home or self-care (01) ==
LOC: LAB.N 08:00
PROVIDERS: ATTEND Family Medicine
DX: D89.2 Hypergammaglobulinemia, unspecified (principal); R61 Generalized hyperhidrosis
CPT/HCPCS: 81599; 82784; 84155; 84165; 86334

== ENCOUNTER 2021-08-16 13:12 | Outpatient (CLI) | payer MEDICAID ==
[2021-08-16 14:16] VITALS: BP 126/72
--- NOTE | 2021-08-16 14:16 | SLEEP CARE CONSULTATION ---
Information from patient questionnaire entered by Karthikeyan Mar MA. I have reviewed and concur with the information entered by Karthikeyan Mar MA. This document represents the service I personally performed and the decisions made by , Marifer Trejo ARNP. History of Present Illness Service Date and Time: 08/16/2021 1312 Previous diagnosis: Moderate, Obstructive Sleep Apnea-Hypopnea Syndrome AHI: 19.4 (in 2020 (20.8 in 2019)) Reason for follow up: one month (ONE MONTH F/U , RESMED, PRESSURE CHANGE, ) Equipment type: CPAP Equipment obtained from: Other ([employer]; has not gotten supplies) Mask style: Nasal pillows Backup mask available: No (will need to keep old mask when replaced) Last cushion change: over 2 months Prior sleep studies: Yes Year and Where: 2018(psg) and 2017(psg) - [facility] Type of Sleep Study: Home sleep study HPI additional information: JEFF CRAWFORD was diagnosed to have moderate, AHI 19.4 (20.8), obstructive sleep apnea-hypopnea syndrome and returned today for CPAP therapy once month with pressure change follow-up. Sleep Study - Results Type of Sleep Study: Home sleep study Prior sleep studies: Yes Year and Where: 2018(psg) and 2017(psg) - [facility] CPAP Compliance Data - Data Reviewed with Patient Average duration of nightly device use: 4 HOURS 48 MINUTES Compliance rate %: 62 (60 days) Current pressure setting (cmH2O): 11-13 Average residual AHI: 1.3 Central apnea: .3 Obstructive apnea: .7 Average large leak: 15.8 Compliance data discussion: She has been waking up covered in sweat about 3-4 times a night. She is not getting over 5 hours of sleep with her CPAP. Subjective Patient concerns: reports: mask discomfort (mask soft and not sealing as well), air blowing in eyes, mask leak noise, dry mouth, nose, throat. denies: aer ophagia, condensation in mask/hose, nasal congestion, epistaxis, other Observed to snore while using device: No Current pressure setting perceived as: comfortable On therapy, patient: reports: sleeping better, awakening more refreshed, being more awake and alert during the day, more rested overall. denies: drowsiness while driving Initial [place] Sleepiness Scale score: 8 (in 2018) Current [place] Sleepiness Scale score: 18 Allergies and Home Medications Home medication list reviewed: Yes (reduced dose on one anti-depressant; stopped gabapentin) Allergy and home medication list: Allergies codeine Allergy (Intermediate, Verified 12/25/19 22:48) Unknown Review of Systems Review of systems same as previous: No (increased in daytime sleepiness) Physical Exam Vital signs obtained and entered by: Amara MAR CMA AAFELECIA Blood Pressure: 126/72 (LEFT) Heart Rate: 100 O2 Saturation: 98 Height: 5 ft 4 in Weight: 272 lb Body Mass Index: 46.7 BMI Classification: Morbidly Obese Impression and Plan 1. Obstructive Sleep Apnea-Hypopnea Syndrome, moderate, with poor treatment compliance and good apnea control. On CPAP therapy, the patient has better sleep quality and is more rested overall. She has been more tired lately, getting very drowsy when driving. She has only been able to sleep 4 hour 48 minutes on average because she is waking up 2-3 times a night with sweats. She has seen her PCP who ordered some labs to check for causes and will be follow up with them later. Her compliance is down because she cannot sleep well with these multiple times waking up. She has also not been able to get more supplies lately and has not changed her mask in over 2 months. She is getting lots of air leaks around the mask. I showed her a nasal Wisp mask and she thinks this could work for her. I gave her a mask set so she can get better CPAP therapy with less leakage around the mask. She voiced agreement with plan. Patient's apnea severity and rationale for treatment to reduce apnea, improve sleep quality and reduce cardiovascular and cerebrovascular events was reviewed. I also reviewed the benefit of consistent device use of CPAP for hypertension, diabetes and depression. Patient was advised to try to lose weight to reduce apneas and improve overall health. * Continue auto CPAP pressure at 11-13 cmH2O * Notify me if snoring with mask or feeling that the pressure is too much or too little * Attempt to lose weight * Call this office if any problems using CPAP * Return for follow up in 3 months, or sooner if concerns arise Mask provided: Yes Counseling Topics: Spare mask, Weight loss health impact Visit Type: In Office Time Spent with Patient (minutes): 23 Provider Statement: I spent 100% of the Face to Face Visit with the patient with greater than 50% spent counseling the patient and coordination of care.
== END 2021-08-16 13:13 | disposition home or self-care (01) ==
LOC: SC 13:12
PROVIDERS: ATTEND Nurse Practitioner Family
DX: G47.33 Obstructive sleep apnea (adult) (pediatric) (principal); E66.01 Morbid (severe) obesity due to excess calories; Z68.42 Body mass index [BMI] 45.0-49.9, adult
CPT/HCPCS: 99212; 99213

== ENCOUNTER 2021-11-28 11:57 | Outpatient (CLI) | payer MEDICAID ==
[2021-11-28 17:59] LABS: CALCIUM 9.5 mg/dL (8.5-10.3); CREATININE 0.7 mg/dL (0.4-1.0); POTASSIUM 4.4 mmol/L (3.5-5.0)
[2021-11-28 21:15] LABS: ESTIMATED AVERAGE GLUCOSE 217 mg/dL (70-100); HEMOGLOBIN A1c% 9.2 % (4.27-6.07)
== END 2021-11-28 11:58 | disposition home or self-care (01) ==
LOC: LAB.N 11:57
PROVIDERS: ATTEND Nurse Practitioner Family
DX: E11.9 Type 2 diabetes mellitus without complications (principal)
CPT/HCPCS: 36415; 80048; 83036

== ENCOUNTER 2022-01-14 09:59 | Outpatient (CLI) | payer MEDICAID ==
[2022-01-14 11:18] VITALS: BP 120/82
--- NOTE | 2022-01-14 11:18 | SLEEP CARE CONSULTATION ---
Information from patient questionnaire entered by Brenda Garcia. I have reviewed and concur with the information entered by Brenda Garcia. This document represents the service I personally performed and the decisions made by me, Karen Crooks MD, [facility]. History of Present Illness Service Date and Time: 01/14/2022 0959 Previous diagnosis: Moderate, Obstructive Sleep Apnea-Hypopnea Syndrome AHI: 19.4 Reason for follow up: other (4 MONTH F/U, ) Equipment type: CPAP (RESMED) Equipment obtained from: Other Mask style: Nasal pillows Prior sleep studies: Yes Year and Where: 2018(psg) and 2017(psg) - [facility] Type of Sleep Study: Home sleep study HPI additional information: Ms. Colin was diagnosed to have moderate obstructive sleep apnea-hypopnea syndrome and returned today for follow up of CPAP therapy. The patient purchased the device from [employer]. She was fitted with a nasal mask. She uses [employer]Med AirSense 11 every night and all night except for 3 months when she went on vacation and could not find distilled water. The compliance data show usage in 73 out of the past 180 nights, averaging 5 hours a night. The residual AHI is 1.1 and average air leak is 2.4 L/minute. He thinks that the current pressure of 11 - 13 cmH2O seems just right. On the CPAP device she notices improvement in her sleep quality, and that she wakes up feeling fresher in the morning and more awake/alert during the day Sleep Study - Results Type of Sleep Study: Home sleep study Prior sleep studies: Yes Year and Where: 2018(psg) and 2017(psg) - [facility] Subjective Initial [place] Sleepiness Scale score: 8 (in 2018) Current [place] Sleepiness Scale score: 19 (01/14/22) Allergies and Home Medications Drug allergies reviewed: Yes Home medication list reviewed: Yes Allergy and home medication list: Allergies codeine Allergy (Intermediate, Verified 12/25/19 22:48) Unknown Review of Systems Review of systems same as previous: Yes Physical Exam Vital signs obtained and entered by: FELECIA HERNÁNDEZ Blood Pressure: 120/82 (left arm ) Heart Rate: 92 O2 Saturation: 96 Height: 5 ft 4 in Weight: 275 lb Body Mass Index: 47.2 BMI Classification: Morbidly Obese Impression and Plan IMPRESSION: 1. Obstructive Sleep Apnea-Hypopnea Syndrome, moderate, with the patient back using her CPAP every night and all night. The current pressure setting appears effective and comfortable. No adjustment is necessary today. I told her that she could use any water if she cannot find the distilled water. PLAN: 1. Continue with autoCPAP set at 11 13 cm H2O. 2. Try to lose weight. 3. Return in one year for follow up or earlier if there is any problem with the treatment. Continue with device pressure at (cmH2O): 11 - 13 Counseling Topics: Weight control Follow up with Sleep Care in: 1 year Visit Type: In Office Time Spent with Patient (minutes): 15 Provider Statement: I spent 100% of the Face to Face Visit with the patient with greater than 50% spent counseling the patient and coordination of care.
== END 2022-01-14 10:00 | disposition home or self-care (01) ==
LOC: SC 09:59
PROVIDERS: ATTEND Internal Medicine Pulmonary Disease
DX: G47.33 Obstructive sleep apnea (adult) (pediatric) (principal); E66.01 Morbid (severe) obesity due to excess calories; Z68.42 Body mass index [BMI] 45.0-49.9, adult
CPT/HCPCS: 99212

== ENCOUNTER 2022-02-04 14:37 | Outpatient (CLI) | payer MEDICAID ==
--- NOTE | 2022-02-05 11:33 | Mammography Report ---
BILATERAL DIGITAL SCREENING MAMMOGRAM 3D/2D: 02/04/2022 CLINICAL: Routine screening. Comparison is made to exams dated: 03/15/2020 mammogram, 10/23/2018 mammogram, and 07/01/2016 mammogram - [facility]. There are scattered areas of fibroglandular density in both breasts (category b / 25%-50% glandular t issue). There are benign calcifications in both breasts. There also are benign vascular calcifications in th e right breast. Additionally, there is a biopsy clip in the right breast. No significant masses, calcifications, or other findings are seen in either breast. There has been no significant interval change. IMPRESSION: BENIGN There is no mammographic evidence of malignancy. A 1 year screening mammogram is recommended. Based on the Tyrer Cuzick model (a risk assessment model) the patients lifetime risk is 3.4% and her 10 year risk is 1.1%. According to the ACR, ACS, and NCCN guidelines, an annual breast MRI exam donita g with mammogram is recommended if the patients lifetime risk is 20% or greater. This exam was interpreted at Station ID: [id number]. NOTE: For mammograms, a report in lay terms will be sent to the patient. Approximately 15% of breast malignancies will not be visualized mammographically. In the management of a palpable breast mass, a negative mammogram must not discourage biopsy of a clinically suspicious lesion. Electronically Signed By: Ajay bragg/penrad:02/05/2022 08:25:42 ACR BI-RADS Category 2: Benign Finding(s) 3342F PARENCHYMAL PATTERN: (A) - The breast(s) demonstrate(s) scattered fibroglandular densities. BI-RADS CATEGORY: (2) - 2 RECOMMENDATION: (ANNUAL) - Recommend routine annual screening mammography. [id number] 1 year screening LATERALITY: (B)
== END 2022-02-04 14:38 | disposition home or self-care (01) ==
LOC: DI.N 14:37
PROVIDERS: ATTEND Nurse Practitioner Family
DX: Z12.31 Encounter for screening mammogram for malignant neoplasm of breast (principal)

== ENCOUNTER 2022-03-11 16:08 | Outpatient (CLI) | payer MEDICAID ==
[2022-03-11 20:25] LABS: BASOPHILS # (AUTO) 0.1 10^3/uL (0.0-0.1); BASOPHILS % (AUTO) 0.6 %; EOSINOPHILS # (AUTO) 0.2 10^3/uL (0.0-0.7); EOSINOPHILS % (AUTO) 1.9 %; HCT - HEMATOCRIT 38.6 % (37.0-47.0); HGB - HEMOGLOBIN 12.5 g/dL (12.0-16.0); LYMPHOCYTES # (AUTO) 2.8 10^3/uL (1.5-3.5); LYMPHOCYTES % (AUTO) 30.5 %; MEAN CORPUSCULAR HEMOGLOBIN 28.4 pg (27.0-31.0); MEAN CORPUSCULAR HGB CONC 32.4 g/dL (32.0-36.0); MEAN CORPUSCULAR VOLUME 87.7 fL (81.0-99.0); MEAN PLATELET VOLUME 9.9 fL (7.9-10.8); MONOCYTES # (AUTO) 0.5 10^3/uL (0.0-1.0); MONOCYTES % (AUTO) 5.4 %; NEUTROPHILS # (AUTO) 5.5 10^3/uL (1.5-6.6); PLT - PLATELET COUNT 406 10^3/uL (130-450); RED CELL DISTRIBUTION WIDTH 13.4 % (12.0-15.0); WHITE BLOOD COUNT 9.1 x10^3/uL (4.8-10.8)
[2022-03-11 20:39] LABS: ALKALINE PHOSPHATASE 103 IU/L (42-121); ALT ALANINE AMINOTRANSFERASE 13 IU/L (10-60); AST ASPARTATE AMINOTRANSFERASE 14 IU/L (10-42); BILIRUBIN,TOTAL < 0.2 mg/dL (0.2-1.0); BUN - BLOOD UREA NITROGEN 23 mg/dL (6-20); CALCIUM 9.7 mg/dL (8.5-10.3); CARBON DIOXIDE - CO2 32 mmol/L (21-32); CHLORIDE 96 mmol/L (101-111); CHOL/HDL RATIO 4.8 (<4.4); CHOLESTEROL 223 mg/dL; CREATININE 0.8 mg/dL (0.4-1.0); GFR - MDRD 74 (>89); GLUCOSE 175 mg/dL (70-100); HDL CHOLESTEROL 46 mg/dL; LDL CHOLESTEROL,CALCULATED 123 mg/dL; LDL/HDL RATIO 2.7 (<4.4); POTASSIUM 3.9 mmol/L (3.5-5.0); SODIUM 138 mmol/L (135-145); TOTAL PROTEIN 8.1 g/dL (6.7-8.2); TRIGLYCERIDES 268 mg/dL; VLDL CHOLESTEROL 54 mg/dL
[2022-03-11 20:50] LABS: THYROID STIMULATING HORMONE 2.82 uIU/mL (0.34-5.60)
[2022-03-11 20:56] LABS: PROLACTIN 7.87 ng/mL
[2022-03-11 21:18] LABS: ESTIMATED AVERAGE GLUCOSE 180 mg/dL (70-100); HEMOGLOBIN A1c% 7.9 % (4.27-6.07)
[2022-03-11 21:19] LABS: FOLLICLE STIMULATING HORMONE 9.09 mIU/mL
[2022-03-14 04:08] LABS: IMMUNOGLOBULIN A 746 mg/dL (87-352); IMMUNOGLOBULIN G 1292 mg/dL (586-1602); IMMUNOGLOBULIN M 66 mg/dL (26-217)
== END 2022-03-11 16:09 | disposition home or self-care (01) ==
LOC: LAB.N 16:08
PROVIDERS: ATTEND Nurse Practitioner Family
DX: E11.9 Type 2 diabetes mellitus without complications (principal); Z79.4 Long term (current) use of insulin; E78.5 Hyperlipidemia, unspecified; I10 Essential (primary) hypertension; D89.2 Hypergammaglobulinemia, unspecified; R61 Generalized hyperhidrosis; E28.319 Asymptomatic premature menopause
CPT/HCPCS: 36415; 80053; 80061; 82784; 83001; 83036; 83721; 84146; 84155; 84165; 84443; 85025

== ENCOUNTER 2022-03-14 09:29 | Outpatient (CLI) | payer MEDICAID ==
--- NOTE | 2022-03-14 11:00 | XRAY Report ---
PROCEDURE: Knee 2 View LT INDICATIONS: KNEE PAIN LEFT TECHNIQUE: 2 views of the left knee(s) were acquired. COMPARISON: None. FINDINGS: Bones: No fractures or dislocations. No suspicious bony lesions. Small osteophytes. Medial compart ment joint space loss. Soft tissues: Mild joint effusion. No suspicious soft tissue calcifications. Popliteal artery rosalva cifications are consistent with peripheral vascular disease. IMPRESSION: Mild degenerative change. No acute bony abnormality of the left knee. Peripheral vascula r disease. Comment: If suspect internal derangement, consider knee MRI. Reviewed by: Jairo De La Garza MD on 03/14/2022 10:59 AM PST Approved by: Jairo De La Garza MD on 03/14/2022 10:59 AM PST Station ID: [id number]
--- NOTE | 2022-03-14 11:48 | Ultrasound Report ---
PROCEDURE: Duplex Ext Veins Left INDICATIONS: KNEE PAIN, LEFT TECHNIQUE: Real-time imaging, as well as color and pulse Doppler interrogation, were performed of the lower extr emity deep veins from the inguinal ligament to the popliteal fossa. COMPARISON: None. FINDINGS: The deep veins are normally compressible, and free of intraluminal thrombus. Color and pu lse Doppler demonstrate normal phasic intraluminal flow. There is normal augmentation response to di stal compression maneuver. IMPRESSION: No deep venous thrombosis. Reviewed by: Chelly Michele MD on 03/14/2022 11:46 AM PST Approved by: Chelly Michele MD on 03/14/2022 11:46 AM PST Station ID: [id number]
== END 2022-03-14 09:30 | disposition home or self-care (01) ==
LOC: DI 09:29
PROVIDERS: ATTEND Nurse Practitioner Family
DX: M17.12 Unilateral primary osteoarthritis, left knee (principal); I70.202 Unspecified atherosclerosis of native arteries of extremities, left leg

== ENCOUNTER 2022-04-03 06:50 | Outpatient (CLI) | payer MEDICAID ==
--- NOTE | 2022-04-03 09:21 | Ultrasound Report ---
PROCEDURE: Ankle Brachial Index INDICATIONS: NEUROPATHY, LEG PAIN TECHNIQUE: Ankle-brachial indices were obtained bilaterally and recorded. COMPARISONS: None. FINDINGS: Right ankle brachial index (THEO): 1.1 Right ankle pressure 168/89 Normal velocities and waveforms. Left ankle brachial index (THEO): 1.1 Left ankle pressure 168/95 Normal velocities and waveforms. Healing potential: Ankle pressures >55 mm Hg in non-diabetics and >80 mm Hg in diabetics are likely to achieve primary h ealing of ischemic foot ulcers. IMPRESSION: Normal bilateral ABIs Reviewed by: Suraj Jacobsen on 04/03/2022 9:20 AM [facility] Approved by: Suraj Jacobsen on 04/03/2022 9:20 AM [facility] Station ID: [id number]
== END 2022-04-03 06:51 | disposition home or self-care (01) ==
LOC: DI 06:50
PROVIDERS: ATTEND Nurse Practitioner Family
DX: M79.604 Pain in right leg (principal); M79.605 Pain in left leg; E66.01 Morbid (severe) obesity due to excess calories; E11.42 Type 2 diabetes mellitus with diabetic polyneuropathy; E78.5 Hyperlipidemia, unspecified; I10 Essential (primary) hypertension
CPT/HCPCS: 93922

== ENCOUNTER 2022-06-21 11:13 | Outpatient (CLI) | payer MEDICAID ==
[2022-06-21 17:55] LABS: CREATININE,URINE 159.6 mg/dL; MICROALBUMIN,URINE 8.3 mg/dL (0-300.0)
[2022-06-21 17:56] LABS: CALCIUM 9.7 mg/dL (8.5-10.3); CREATININE 0.8 mg/dL (0.4-1.0)
[2022-06-21 22:04] LABS: ESTIMATED AVERAGE GLUCOSE 166 mg/dL (70-100); HEMOGLOBIN A1c% 7.4 % (4.27-6.07)
== END 2022-06-21 11:14 | disposition home or self-care (01) ==
LOC: LAB.N 11:13
PROVIDERS: ATTEND Nurse Practitioner Family
DX: E11.9 Type 2 diabetes mellitus without complications (principal)
CPT/HCPCS: 36415; 80048; 82043; 82570; 83036

== ENCOUNTER 2023-02-03 16:47 | Outpatient (CLI) | payer MEDICAID ==
[2023-02-03 21:21] LABS: BASOPHILS % (AUTO) 0.4 %; EOSINOPHILS # (AUTO) 0.1 10^3/uL (0.0-0.7); EOSINOPHILS % (AUTO) 1.2 %; HCT - HEMATOCRIT 39.6 % (37.0-47.0); HGB - HEMOGLOBIN 12.7 g/dL (12.0-16.0); LYMPHOCYTES # (AUTO) 2.7 10^3/uL (1.5-3.5); MEAN CORPUSCULAR HEMOGLOBIN 27.9 pg (27.0-31.0); MEAN CORPUSCULAR HGB CONC 32.1 g/dL (32.0-36.0); MEAN CORPUSCULAR VOLUME 86.8 fL (81.0-99.0); MEAN PLATELET VOLUME 10.2 fL (7.9-10.8); MONOCYTES # (AUTO) 0.7 10^3/uL (0.0-1.0); MONOCYTES % (AUTO) 6.8 %; NEUTROPHILS # (AUTO) 6.1 10^3/uL (1.5-6.6); NEUTROPHILS % (AUTO) 63.3 %; PLT - PLATELET COUNT 403 10^3/uL (130-450); RED BLOOD COUNT 4.56 10^6/uL (4.20-5.40); RED CELL DISTRIBUTION WIDTH 14.4 % (12.0-15.0); WHITE BLOOD COUNT 9.6 x10^3/uL (4.8-10.8)
[2023-02-03 21:35] LABS: ALBUMIN 4.2 g/dL (3.2-5.5); ALBUMIN/GLOBULIN RATIO 1.2 (1.0-2.2); ALKALINE PHOSPHATASE 109 IU/L (42-121); ALT ALANINE AMINOTRANSFERASE 9 IU/L (10-60); AST ASPARTATE AMINOTRANSFERASE 10 IU/L (10-42); BILIRUBIN,TOTAL 0.3 mg/dL (0.2-1.0); BUN - BLOOD UREA NITROGEN 17 mg/dL (6-20); CALCIUM 9.7 mg/dL (8.5-10.3); CARBON DIOXIDE - CO2 33 mmol/L (21-32); CHLORIDE 96 mmol/L (101-111); CHOL/HDL RATIO 3.5 (<4.4); CHOLESTEROL 150 mg/dL; CREATININE 0.8 mg/dL (0.6-1.3); GFR - MDRD 74 (>89); GLUCOSE 223 mg/dL (74-104); HDL CHOLESTEROL 43 mg/dL; LDL CHOLESTEROL,CALCULATED 69 mg/dL; LDL/HDL RATIO 1.6 (<4.4); POTASSIUM 3.5 mmol/L (3.5-4.5); SODIUM 138 mmol/L (135-145); TOTAL PROTEIN 7.7 g/dL (6.4-8.9); TRIGLYCERIDES 192 mg/dL (48-352); VLDL CHOLESTEROL 38 mg/dL
[2023-02-03 21:47] LABS: THYROID STIMULATING HORMONE 2.58 uIU/mL (0.34-5.60)
[2023-02-03 22:00] LABS: ESTIMATED AVERAGE GLUCOSE 151 mg/dL (70-100); HEMOGLOBIN A1c% 6.9 % (4.27-6.07)
== END 2023-02-03 16:48 | disposition home or self-care (01) ==
LOC: LAB.N 16:47
PROVIDERS: ATTEND Nurse Practitioner Family
DX: E11.9 Type 2 diabetes mellitus without complications (principal); Z79.4 Long term (current) use of insulin; E78.5 Hyperlipidemia, unspecified; I10 Essential (primary) hypertension
CPT/HCPCS: 36415; 80053; 80061; 83036; 83721; 84443; 85025

== ENCOUNTER 2023-03-28 08:00 | Outpatient (CLI) | payer SELFPAY | END 2023-03-28 23:59 | disposition home or self-care (01) | LOC: LAB.N 08:00 | PROVIDERS: ATTEND Nurse Practitioner Family | DX: R05.1 Acute cough (principal) | CPT/HCPCS: 87635 ==

== ENCOUNTER 2023-07-30 17:00 | Outpatient (CLI) | payer BC ==
[2023-07-30 20:22] LABS: BASOPHILS # (AUTO) 0.1 10^3/uL (0.0-0.1); BASOPHILS % (AUTO) 0.8 %; EOSINOPHILS # (AUTO) 0.6 10^3/uL (0.0-0.7); EOSINOPHILS % (AUTO) 5.4 %; HCT - HEMATOCRIT 39.2 % (37.0-47.0); HGB - HEMOGLOBIN 12.8 g/dL (12.0-16.0); LYMPHOCYTES # (AUTO) 2.5 10^3/uL (1.5-3.5); MEAN CORPUSCULAR HEMOGLOBIN 27.9 pg (27.0-31.0); MEAN CORPUSCULAR HGB CONC 32.7 g/dL (32.0-36.0); MEAN CORPUSCULAR VOLUME 85.6 fL (81.0-99.0); MEAN PLATELET VOLUME 10.6 fL (7.9-10.8); MONOCYTES # (AUTO) 0.5 10^3/uL (0.0-1.0); MONOCYTES % (AUTO) 4.6 %; NEUTROPHILS # (AUTO) 6.6 10^3/uL (1.5-6.6); NEUTROPHILS % (AUTO) 64.3 %; PLT - PLATELET COUNT 361 10^3/uL (130-450); RED BLOOD COUNT 4.58 10^6/uL (4.20-5.40); RED CELL DISTRIBUTION WIDTH 13.6 % (12.0-15.0); WHITE BLOOD COUNT 10.3 x10^3/uL (4.8-10.8)
[2023-07-30 20:55] LABS: CHOL/HDL RATIO 5.2 (<4.4); CHOLESTEROL 206 mg/dL; HDL CHOLESTEROL 40 mg/dL; LDL CHOLESTEROL,CALCULATED 124 mg/dL; LDL/HDL RATIO 3.1 (<4.4); THYROID STIMULATING HORMONE 1.61 uIU/mL (0.34-5.60); TRIGLYCERIDES 209 mg/dL (48-352); VLDL CHOLESTEROL 42 mg/dL
[2023-07-30 20:57] LABS: ESTIMATED AVERAGE GLUCOSE 206 mg/dL (70-100); HEMOGLOBIN A1c% 8.8 % (4.27-6.07)
[2023-07-31 12:28] LABS: CREATININE,URINE 51.3 mg/dL; MICROALBUM/CREATININE RATIO,UR 13.6 ug/mg (<30.0); MICROALBUMIN,URINE 0.7 mg/dL
== END 2023-07-30 17:01 | disposition home or self-care (01) ==
LOC: LAB.N 17:00
PROVIDERS: ATTEND Physician Assistant
DX: E78.5 Hyperlipidemia, unspecified (principal); E11.9 Type 2 diabetes mellitus without complications
CPT/HCPCS: 36415; 80061; 82043; 82570; 83036; 83721; 84443; 85025

== ENCOUNTER 2023-08-25 13:08 | Outpatient (CLI) | payer BC ==
--- NOTE | 2023-08-26 10:29 | XRAY Report ---
PROCEDURE: Foot 3+V LT (Weight Bearing) INDICATIONS: FOOT PAIN, LEFT TECHNIQUE: 3 views of the foot were acquired. COMPARISON: None. FINDINGS: Bones: No fractures or dislocations. Mild pes planus. There are osteoarthritic changes, most pronoun belle and severe at the tibiotalar joint. There is deformity of the talar dome. No suspicious bony lesi ons. Soft tissues: No tibiotalar joint effusion. Achilles tendon appears normal. IMPRESSION: 1. Pes planus. 2. Severe osteoarthritis. Reviewed by: Maegan Amezquita MD on 08/26/2023 10:28 AM PDT Approved by: Maegan Amezquita MD on 08/26/2023 10:28 AM PDT Station ID: [id number]
== END 2023-08-25 13:09 | disposition home or self-care (01) ==
LOC: DI.N 13:08
PROVIDERS: ATTEND Physician Assistant
DX: M19.072 Primary osteoarthritis, left ankle and foot (principal); M21.42 Flat foot [pes planus] (acquired), left foot

== ENCOUNTER 2023-11-27 07:49 | Outpatient (CLI) | payer BC ==
[2023-11-27 12:29] LABS: ALBUMIN 4.5 g/dL (3.2-5.5); ALBUMIN/GLOBULIN RATIO 1.3 (1.0-2.2); ALKALINE PHOSPHATASE 93 IU/L (42-121); ALT ALANINE AMINOTRANSFERASE 13 IU/L (10-60); AST ASPARTATE AMINOTRANSFERASE 12 IU/L (10-42); BILIRUBIN,TOTAL 0.4 mg/dL (0.2-1.0); BUN - BLOOD UREA NITROGEN 15 mg/dL (6-20); CALCIUM 9.9 mg/dL (8.5-10.3); CARBON DIOXIDE - CO2 34 mmol/L (21-32); CHLORIDE 98 mmol/L (101-111); CHOL/HDL RATIO 4.9 (<4.4); CHOLESTEROL 199 mg/dL; CREATININE 0.8 mg/dL (0.6-1.3); GFR - MDRD 74 (>89); GLUCOSE 103 mg/dL (74-104); HDL CHOLESTEROL 41 mg/dL; LDL CHOLESTEROL,CALCULATED 118 mg/dL; LDL/HDL RATIO 2.9 (<4.4); SODIUM 137 mmol/L (135-145); TOTAL PROTEIN 7.9 g/dL (6.4-8.9); TRIGLYCERIDES 199 mg/dL; VLDL CHOLESTEROL 40 mg/dL
[2023-11-27 13:53] LABS: ESTIMATED AVERAGE GLUCOSE 134 mg/dL (70-100); HEMOGLOBIN A1c% 6.3 % (4.27-6.07)
== END 2023-11-27 07:50 | disposition home or self-care (01) ==
LOC: LAB.N 07:49
PROVIDERS: ATTEND Physician Assistant
DX: E11.9 Type 2 diabetes mellitus without complications (principal); E78.5 Hyperlipidemia, unspecified
CPT/HCPCS: 36415; 80053; 80061; 83036; 83721